=== PATIENT | male | born 1925 | race Caucasian/White ===

== ENCOUNTER 2016-10-29 19:41 | Inpatient (IN) | payer OTHER ==
[2016-10-29] MEDS ORDERED: HEPARIN NA (PORCINE) 5,000 UNITS/ML 1ML VIAL IVPUSH PRN ×4 (19:54→23:54)
[2016-10-29] MEDS ORDERED: HEPARIN INFUSION - 500 ML IVPB SCH (20:00)
[2016-10-29] MEDS ORDERED: SODIUM CHLORIDE 0.9% 500 ML INFUS.BAG IV ONE (20:02)
--- NOTE | 2016-10-29 20:05 | PDOC ---
History of Present Illness - General History Source: Patient, Old Records Exam Limitations: No Limitations - History of Present Illness Initial Comments: 10/29/16 20:44 The patient is a 89 year old male brought via EMS and presenting with his family , with a significant past medical history of AFIB, who presents to the emergency department with numbness in his lower extremities bilaterally. He notes that the numbness began 30 minutes prior to presentation. He reports that his last meal was at 5pm today, consisting of a hamburger. He denies any kind of fall or trauma. The patient denies chest pain, shortness of breath, headache and dizziness. Denies fever, chills, nausea, vomit, diarrhea and constipation. Denies dysuria, frequency, urgency and hematuria. Allergies: None Past surgical history: None reported Social history: No alcohol, tobacco or drug use reported PMD - Dr. Que Breaux <Jadiel Cordoba - Last Filed: 10/29/16 20:56> <Ann Soto - Last Filed: 10/29/16 21:28> - General Chief Complaint: CVA/TIA Stated Complaint: LEG NUMBNESS Time Seen by Provider: 10/29/16 19:48 Past History <Jadiel Cordoba - Last Filed: 10/29/16 20:56> - Psycho/Social/Smoking Cessation Hx Suicidal Ideation: No Smoking History: Never smoked Have you smoked in the past 12 months: No Information on smoking cessation initiated: No Hx Alcohol Use: No Drug/Substance Use Hx: No <Ann Soto - Last Filed: 10/29/16 21:28> - Past Medical History Allergies/Adverse Reactions: Allergies Allergy/AdvReac Type Severity Reaction Status Date / Time No Known Allergies Allergy Verified 10/29/16 19:49 Home Medications: Ambulatory Orders Aspirin [ASA -] 81 mg PO DAILY 10/29/16 Finasteride [Proscar -] 5 mg PO DAILY 10/29/16 Furosemide 20 mg PO DAILY 10/29/16 Lisinopril 5 mg PO DAILY 10/29/16 Metoprolol Tartrate 50 mg PO DAILY 10/29/16 Montelukast Na 10 mg PO DAILY 10/29/16 Tamsulosin HCl 0.4 mg PO DAILY 10/29/16 Review of Systems - Review of Systems Able to Perform ROS?: Yes Comments:: 10/29/16 20:46 GENERAL/CONSTITUTIONAL: No fever or chills. No weakness. HEAD, EYES, EARS, NOSE AND THROAT: No change in vision. No ear pain or discharge. No sore throat. CARDIOVASCULAR: No chest pain or shortness of breath RESPIRATORY: No cough, wheezing, or hemoptysis. GASTROINTESTINAL: No nausea, vomiting, diarrhea or constipation. GENITOURINARY: No dysuria, frequency, or change in urination. MUSCULOSKELETAL: No joint or muscle swelling or pain. No neck or back pain. SKIN: No rash NEUROLOGIC: (+) Bilateral lower extremity numbness. No headache, vertigo, loss of consciousness ENDOCRINE: No increased thirst. No abnormal weight change HEMATOLOGIC/LYMPHATIC: No anemia, easy bleeding, or history of blood clots. ALLERGIC/IMMUNOLOGIC: No hives or skin allergy. <Jadiel Cordoba - Last Filed: 10/29/16 20:56> *Physical Exam - Vital Signs Last Vital Signs Temp Pulse Resp BP Pulse Ox 98.1 F 53 L 18 158/65 96 10/29/16 19:52 10/29/16 19:52 10/29/16 19:52 10/29/16 19:52 10/29/16 19:52 - Physical Exam Comments: 10/29/16 20:47 GENERAL: Awake, alert, and fully oriented, in no acute distress HEAD: No signs of trauma, normocephalic, atraumatic EYES: PERRLA, EOMI, sclera anicteric, conjunctiva clear ENT: Auricles normal inspection, hearing grossly normal, nares patent, oropharynx clear without exudates. Moist mucosa NECK: Normal ROM, supple, no lymphadenopathy, JVD, or masses LUNGS: No distress, speaks full sentences, clear to auscultation bilaterally HEART:(+) Irregularly irregular heart, normal S1 and S2, no murmurs, rubs or gallops, peripheral pulses normal and equal bilaterally. ABDOMEN: Soft, nontender, normoactive bowel sounds. No guarding, no rebound. No masses EXTREMITIES: (+) No left DP or PT pulses. Right side palpable DP and PT pulses. No edema. No clubbing or cyanosis. NEUROLOGICAL: Cranial nerves II through XII grossly intact. Normal speech. SKIN: Warm, Dry, normal turgor, no rashes or lesions noted. <Jadiel Cordoba - Last Filed: 10/29/16 20:56> - Vital Signs Last Vital Signs Temp Pulse Resp BP Pulse Ox 98.1 F 53 L 18 158/65 96 10/29/16 19:52 10/29/16 19:52 10/29/16 19:52 10/29/16 19:52 10/29/16 19:52 <Ann Soto - Last Filed: 10/29/16 21:28> ED Treatment Course - LABORATORY CBC & Chemistry Diagram: 10/29/16 20:08 10/29/16 20:08 - ADDITIONAL ORDERS Additional order review: Laboratory Results 10/29/16 20:08 INR 1.12 10/29/16 20:08 RBC 4.23 MCV 97.0 H MCHC 32.8 RDW 14.3 MPV 9.0 Neutrophils % 58.6 Lymphocytes % 29.4 Monocytes % 9.0 Eosinophils % 2.1 Basophils % 0.9 - Medications Given in the ED: ED Medications Discontinued Medications Generic Name Dose Route Start Last Admin Trade Name Freq PRN Reason Stop Dose Admin Heparin Sodium (Porcine) 5,000 unit 10/29/16 20:10 10/29/16 20:22 Heparin - IVPUSH 10/29/16 20:11 5,000 unit ONCE ONE Administration Sodium Chloride 1,000 ml 10/29/16 20:02 10/29/16 20:22 Normal Saline - IV 10/29/16 20:03 1,000 ml ONCE ONE Administration <Jadiel Cordoba - Last Filed: 10/29/16 20:56> - LABORATORY CBC & Chemistry Diagram: 10/29/16 20:08 10/29/16 20:08 - RADIOLOGY Radiology Studies Ordered: Category Date Time Status HEAD CT WITHOUT CONTRAST [CT] Stat CT Scan 10/29/16 19:48 Ordered CHEST X-RAY PORTABLE* [RAD] Stat Radiology 10/29/16 19:49 Ordered LOWER EXT ART DOPP/PVR [VASC] Stat Vascular 10/29/16 19:52 Ordered <Ann Soto - Last Filed: 10/29/16 21:28> Medical Decision Making - Medical Decision Making 10/29/16 20:56 Dr. Jaime Diego was consulted regarding the patient at 7:55pm [phone] Dr. Que Breaux was consulted regarding the patient 8:00pm and again at 8:09pm [phone] Dr. Diego was at the bedside of the patient at 8:05pm <Jadiel Cordoba - Last Filed: 10/29/16 20:56> - Medical Decision Making 10/29/16 20:08 Pt has left leg numbness that he began to feel about 40 min ago. Popliteal pulse, DP and PT not present on left and leg is cold. [facility] surgeon paged immediately - he recommends to take patient to the ER in the AM, as pt at a burger. I paged Que Breaux, pt's PMD, and relayed this info, he agrees pt needs to go to OR immediately. 10/29/16 20:09 Pre op labs pending. [facility] surgeon at bedside. EKG shows afib and inraventricular conduction delay; Pt is not on blood thinners for the afib. Heparin IVP and drip running; NSS 1 L given I placed an admission to ICU, as there are no tele beds, and pt will likely not be placed on the medical floor with diagnosis of afib, on IV heparin drip 10/29/16 21:25 Pt went to OR. <Ann Soto - Last Filed: 10/29/16 21:28> *DC/Admit/Observation/Transfer - Attestations Scribe Attestion: 10/29/16 20:48 Documentation prepared by Jadiel Cordoba, acting as medical technical writer for Ann Soto MD <Jadiel Cordoba - Last Filed: 10/29/16 20:56> - Discharge Dispostion Admit: Yes <Ann Soto - Last Filed: 10/29/16 21:28> Diagnosis at time of Disposition: Atrial fibrillation, Left popliteal artery occlusion - Referrals Referrals: Que Breaux MD [Primary Care Provider] -
[2016-10-29] MEDS ORDERED: HEPARIN NA (PORCINE) 5,000 UNITS/ML 1ML VIAL IVPUSH ONE (20:10)
[2016-10-29 20:18] LABS: BASOPHIL 0.9 % (0-2.0); EOSINOPHIL 2.1 % (0-4.5); MCH 31.8 pg (25.7-33.7); MCHC 32.8 g/dl (32.0-35.9); NEUTROPHILS 58.6 % (42.8-82.8); PLATELET COUNT 141 K/MM3 (134-434); RDW 14.3 % (11.9-15.9); WHITE BLOOD COUNT 4.9 K/mm3 (4.0-10.0)
[2016-10-29] MEDS ORDERED: HEPARIN NA (PORCINE) 5,000 UNITS/ML 1ML VIAL ONE ×3 (20:18→22:24)
[2016-10-29] MEDS ORDERED: HEPARIN INFUSION - 500 ML IVPB ONE (20:24)
[2016-10-29 20:30] LABS: INR 1.12 (0.82-1.09); PROTHROMBIN TIME (PATIENT) 12.4 SEC (9.98-11.88)
[2016-10-29 20:44] LABS: ALBUMIN 3.1 g/dl (3.4-5.0); ANION GAP 9 (8-16); BILIRUBIN,TOTAL 0.7 mg/dL (0.2-1.0); CALCIUM 8.5 mg/dL (8.5-10.1); CO2 27 mmol/L (21-32); COCKROFT - GAULT 44.48; CREATININE 1.3 mg/dL (0.7-1.3); GLUCOSE,RANDOM 91 mg/dL (74-106); SGOT/AST 22 U/L (15-37); SGPT/ALT 22 U/L (12-78); TOT PROT 6.6 g/dl (6.4-8.2)
[2016-10-29 20:47] LABS: ALK PHOS 76 U/L (45-117); TROPONIN I < 0.02 ng/ml (0.00-0.05)
--- NOTE | 2016-10-29 21:30 | CONSULT ---
Consult - Alcohol/Substance Use Hx Alcohol Use: No - Smoking History Smoking history: Never smoked Have you smoked in the past 12 months: No Home Medications - Allergies Allergies/Adverse Reactions: Allergies Allergy/AdvReac Type Severity Reaction Status Date / Time No Known Allergies Allergy Verified 10/29/16 19:49 - Home Medications Home Medications: Ambulatory Orders Aspirin [ASA -] 81 mg PO DAILY 10/29/16 Finasteride [Proscar -] 5 mg PO DAILY 10/29/16 Furosemide 20 mg PO DAILY 10/29/16 Lisinopril 5 mg PO DAILY 10/29/16 Metoprolol Tartrate 50 mg PO DAILY 10/29/16 Montelukast Na 10 mg PO DAILY 10/29/16 Tamsulosin HCl 0.4 mg PO DAILY 10/29/16 Physical Exam Vital Signs: Vital Signs Temperature 98.1 F 10/29/16 21:12 Pulse Rate 69 10/29/16 21:12 Respiratory Rate 17 10/29/16 21:12 Blood Pressure 166/86 10/29/16 21:12 O2 Sat by Pulse Oximetry (%) 99 10/29/16 21:12 Labs: CBC, BMP 10/29/16 20:08 10/29/16 20:08 Assessment/Plan Vascular Surgery The patient is a 89 year old male brought via EMS and presenting with his family , with a significant past medical history of AFIB, who presents to the emergency department with numbness in his left lower extremity. He notes that the numbness began 30 minutes prior to presentation. He reports that his last meal was at 5pm today, consisting of a hamburger. He denies any kind of fall or trauma. The patient denies chest pain, shortness of breath, headache and dizziness. Denies fever, chills, nausea, vomit, diarrhea and constipation. Denies dysuria, frequency, urgency and hematuria. Allergies: None Past surgical history: None reported Social history: No alcohol, tobacco or drug use reported PMD - Dr. Que Breaux PE head - NC/AT Lung - CTA Heart - RRR abd - soft,nt,nd ext - Left lower ext cool to touch. Palpable DP pulse. No pop pulse. faint femoral pulse. Motor in left foot is intact Sensory is not intact. Right foot - warm, palpable pulses. A/P Left lower ext embolus. Will do angiogram possible open thrombectomy
[2016-10-29] MEDS ORDERED: SUCCINYLCHOLINE CHLORIDE 200 MG/10 ML VIAL ONE (21:32)
[2016-10-29] MEDS ORDERED: MIDAZOLAM HCL 2 MG/2 ML SINGLE DOSE VIAL ONE (21:32)
[2016-10-29] MEDS ORDERED: PROPOFOL 20 ML ONE (21:32)
[2016-10-29] MEDS ORDERED: LIDOCAINE HCL 1%, 10 MG/ML (20ML VIAL) ONE (21:45)
[2016-10-29] MEDS ORDERED: LIDOCAINE HCL 2% (20ML MULTI-DOSE VIAL) NR ONE (21:45)
[2016-10-29] MEDS ORDERED: ceFAZolin SODIUM 1 GM VIAL IVPB ONE (21:57)
[2016-10-29] MEDS ORDERED: ROCURONIUM BROMIDE 50 MG/5 ML VIAL ONE (21:58)
[2016-10-29] MEDS ORDERED: PHENYLEPHRINE HCL 10 MG/1 ML SINGLE DOSE VIAL ONE (22:34)
[2016-10-29] MEDS ORDERED: ePHEDrine SULFATE 50 MG/1 ML AMPULE ONE (22:48)
[2016-10-29] MEDS ORDERED: NEOSTIGMINE METHYLSULFATE 0.5 MG/ML - 10 ML MDV ONE (23:08)
[2016-10-29] MEDS ORDERED: HEPARIN NA (PORCINE) 5,000 UNITS/ML 1ML VIAL SQ ONE (23:40)
[2016-10-29] MEDS: HEPARIN - 25,000 UNIT in SODIUM CHLORIDE 495 ML IV SCH (23:45)
--- NOTE | 2016-10-29 23:57 | OP ---
Operative Note - Note: Operative Date: 10/29/16 Pre-Operative Diagnosis: Left lower ext ischemia Operation: Aortogram, LLE angiogram, left iliac artery and SFA open thrombecomy Findings: emolus in iliac and sfa Post-Operative Diagnosis: Same as Pre-op Surgeon: Jaime Diego Anesthesia: General Estimated Blood Loss (mls): 100 Operative Report Dictated: Yes
[2016-10-30] MEDS ORDERED: ONDANSETRON 4 MG/2 ML VIAL IVPUSH PRN (00:13)
--- NOTE | 2016-10-30 00:26 | CONSULT ---
Consult Consult Specialty:: PULMONARY / CRITICAL CARE Referred by:: Dr Breaux Reason for Consultation:: s/p LLE thrombectomy - History of Present Illness Chief Complaint: LE numbness History of Present Illness: Briefly, 89 y/o man with AF, HTN, BPH, presented to the ED with b/l LE parasthesia. In the ED he was found to have a cold LEFT leg with weak femoral and pedal pulses, no pop pulse. He went to the OR with Dr. Diego. He underwent a left aortogram, LLE angiogram, left iliac artery and SFA open thrombecomy for LEFT popliteal artery occlusion. He has positive distal pulses with a warm leg post-operatively. He was started on Heparin drip and admitted to the ICU for observation. - History Source History Provided By: Medical Record Limitations to Obtaining History: Other (lethargic post-anesthesia) - Past Medical History Cardio/Vascular: Yes: AFIB, HTN Pulmonary: Yes: COPD - Alcohol/Substance Use Hx Alcohol Use: No - Smoking History Smoking history: Never smoked Have you smoked in the past 12 months: No Home Medications - Allergies Allergies/Adverse Reactions: Allergies Allergy/AdvReac Type Severity Reaction Status Date / Time No Known Allergies Allergy Verified 10/29/16 19:49 - Home Medications Home Medications: Ambulatory Orders Aspirin [ASA -] 81 mg PO DAILY 10/29/16 Finasteride [Proscar -] 5 mg PO DAILY 10/29/16 Furosemide 20 mg PO DAILY 10/29/16 Lisinopril 5 mg PO DAILY 10/29/16 Metoprolol Tartrate 50 mg PO DAILY 10/29/16 Montelukast Na 10 mg PO DAILY 10/29/16 Tamsulosin HCl 0.4 mg PO DAILY 10/29/16 Review of Systems Unable to obtain ROS, reason: pt is sedated Physical Exam Vital Signs: Vital Signs Temperature 98.1 F 10/29/16 21:12 Pulse Rate 69 10/29/16 21:12 Respiratory Rate 17 10/29/16 21:12 Blood Pressure 166/86 10/29/16 21:12 O2 Sat by Pulse Oximetry (%) 99 10/29/16 21:12 Constitutional: Yes: Well Nourished Eyes: Yes: WNL HENT: Yes: Atraumatic, Normocephalic Neck: Yes: WNL Cardiovascular: Yes: Pulse Irregular. No: JVD Respiratory: Yes: CTA Bilaterally Gastrointestinal: Yes: Normal Bowel Sounds, Soft. No: Tenderness Extremities: Yes: WNL Edema: No Peripheral Pulses WNL: Yes (+ pedal pulses, L foot warm, good cap refill) Integumentary: Yes: WNL Imaging - Results Chest X-ray: Report Reviewed Ultrasound: Report Reviewed Problem List - Problems (1) Atrial fibrillation Code(s): I48.91 - UNSPECIFIED ATRIAL FIBRILLATION (2) Left popliteal artery occlusion Code(s): I74.3 - EMBOLISM AND THROMBOSIS OF ARTERIES OF THE LOWER EXTREMITIES (3) Hypertension Code(s): I10 - ESSENTIAL (PRIMARY) HYPERTENSION (4) BPH (benign prostatic hyperplasia) Code(s): N40.0 - BENIGN PROSTATIC HYPERPLASIA WITHOUT LOWER URINRY TRACT SYMP Assessment/Plan Left popliteal artery occlusion s/p left iliac artery and SFA open thrombecomy AF HTN BPH -Vascular following -Heparin for full AC -Frequent neurovascular checks -Rate control -Restart home meds as indicated -Advance diet -GI PPx while on AC Monitor in ICU Thank you for this interesting consult Keon Martinez Pulm/Critical Care PRESSURE CONTR[employer]ER
[2016-10-30] MEDS: LACTATED RINGERS SOLUTION 1,000 ML IV SCH ×2 (00:40→16:33)
[2016-10-30 00:56] VITALS: BMI 26.5
--- NOTE | 2016-10-30 01:07 | OP ---
DATE OF OPERATION: 10/29/2016 PREOPERATIVE DIAGNOSIS: Left lower extremity ischemia. POSTOPERATIVE DIAGNOSIS: Left lower extremity ischemia. PROCEDURE: Aortogram, left lower extremity angiogram, open thrombectomy, left iliac artery and left superficial femoral artery. SURGEON: Jaime Devries MD ANESTHESIA: Fractional. BLOOD LOSS: 100 mL. INDICATIONS: The patient is an 89-year-old male who comes in today to the ER complaining of numbness in his left lower extremity. He claims that the numbness probably started somewhere around 5 p.m. He decided to come to the ER. Upon coming to the ER, we recognized that he has a left lower extremity that is cool to touch with diminished pulses. He has palpable pulses on the opposite extremity. It was felt that he would need an angiogram and need a possible open thrombectomy. Patient was consented for the procedure, understanding all risks, benefits, and alternatives. DESCRIPTION OF PROCEDURE: He was then taken to the operating room suite and placed on the operating table in the supine position. The area of the right and left groins and the abdomen were prepped and draped in the sterile surgical manner. We then injected 10 mL of lidocaine. Anesthesia administered general anesthesia. We then went ahead and took a micropuncture needle and punctured the right common femoral artery. Micropuncture wire was inserted and a traditional 5-Marshallese sheath was inserted. A 0.035 floppy guidewire was inserted into the aorta followed by an RIM catheter. We then shot an aortogram, showing that the aorta and iliac arteries were without any disease; however, the left iliac residential down had clot and there was minimal blood flow getting into the vein and the common femoral artery. At this point, we decided that the patient would need an open operation. We went ahead and made a 7-cm incision over the left common femoral artery. Bovie cautery was used to control hemostasis. We were able to dissect down using Bovie electrocautery, down through all of the subcutaneous tissue. We then got down to the femoral sheath. The femoral sheath was then opened and the common femoral artery, the SFA, and the profunda were all isolated, dissected, and loops were placed around them for control. We then administered 5000 units of IV heparin. After 3 minutes, we got proximal and distal control on each artery. We then went ahead and, using an 11-blade, made a transverse incision on the common femoral artery. We then went ahead and used a No. 4 Jacob and placed a Jacob up into the iliac arteries. When we did that, clot embolus was removed from the iliac artery. Multiple passes were taken until there was no more clot found. We then went ahead and tested the inflow and the inflow was perfectly open. We then went ahead and placed our Jacob catheter into the deep profunda artery and brought it back and there was no clot found there. We then put our 4-0 Jacob catheter down to the popliteal artery and we were able to do an embolectomy of the SFA. Clot was removed and that was sent to pathology. There was good back-bleeding from the SFA. We then went ahead and placed a 5-Marshallese sheath into the SFA and shot an angiogram of the left lower extremity. There was good flow down into the foot. Main run off for the patient is his left posterior tibial artery. At this point, we then used 6-0 Prolene double-arm and ran a stitch and closed our arteriotomy in a running fashion. Wound was well irrigated. Surgicel was placed. We then went ahead and used 3-0 Vicryl in the subcutaneous tissues, which were approximated in an interrupted manner. The skin was closed with skin shanna. We then went ahead and placed a StarClose device in the right common femoral artery and the artery was successfully closed using the StarClose device. Pressure was held was held. The areas were then dried and Dermabond was placed. Then 4 x 4's and Tegaderm was placed. The patient tolerated the procedure with no complication. Patient had palpable pulses at the end of the case and will be started on IV heparin. JIAME DEVRIES DO [id number]
[2016-10-30 06:12] LABS: BASOPHIL 0.4 % (0-2.0); EOSINOPHIL 0.8 % (0-4.5); MCH 32.2 pg (25.7-33.7); MEAN CELL VOLUME 97.6 fl (80-96); MEAN PLT VOLUME 9.4 fl (7.5-11.1); NEUTROPHILS 67.4 % (42.8-82.8); PLATELET COUNT 134 K/MM3 (134-434); RDW 14.5 % (11.9-15.9)
[2016-10-30] MEDS ORDERED: TAMSULOSIN HCL 0.4 MG CAP.ER.24H (FP) PO SCH (08:30)
[2016-10-30 08:34] LABS: CALCIUM 8.1 mg/dL (8.5-10.1); COCKROFT - GAULT 59.33; MAGNESIUM 2.4 mg/dL (1.8-2.4); PHOSPHOROUS 3.3 mg/dL (2.5-4.9)
--- NOTE | 2016-10-30 09:08 | PN ---
Progress Note (short form) - Note Progress Note: Vascular Surgery Pt seen and examined. POD #1 left lower ext open thrombectomy. Palpable PT pulse, popliteal pulse. Dopplerable DP and PT pulses. some hematoma in left groin, soft. Cont IV heparin for afib. Will follow. Jaime Diego DO
--- NOTE | 2016-10-30 09:35 | PN ---
Progress Note (short form) - Note Progress Note: Post op day#1.S/p Open thrombectomy under Ga uneventful.P 68.BP144/103 and Spop2 98% on O2 @L NC.Patient stable.No any anesthesia related problem.Patient DC from the anesthesia care.
--- NOTE | 2016-10-30 09:36 | HP ---
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: Yes: Other (slightley forgetful) Cardiovascular: Yes: AFIB, HTN, Other (h/o chf?) Pulmonary: Yes: COPD - Smoking History Smoking history: Never smoked Have you smoked in the past 12 months: No - Alcohol/Substance Use Hx Alcohol Use: No (dinner time, wine) History of Substance Use: reports: None - Social History Usual Living Arrangement: Yes: With Child ADL: Independent History of Recent Travel: No Home Medications - Allergies Allergies/Adverse Reactions: Allergies Allergy/AdvReac Type Severity Reaction Status Date / Time No Known Allergies Allergy Verified 10/29/16 19:49 - Home Medications Home Medications: Ambulatory Orders Aspirin [ASA -] 81 mg PO DAILY 10/29/16 Finasteride [Proscar -] 5 mg PO DAILY 10/29/16 Furosemide 20 mg PO DAILY 10/29/16 Lisinopril 5 mg PO DAILY 10/29/16 Metoprolol Tartrate 50 mg PO DAILY 10/29/16 Montelukast Na 10 mg PO DAILY 10/29/16 Tamsulosin HCl 0.4 mg PO DAILY 10/29/16 Family Disease History - Family Disease History Family History: Unremarkable Review of Systems - Review of Systems Constitutional: reports: No Symptoms Eyes: reports: No Symptoms HENT: reports: No Symptoms Neck: reports: No Symptoms Cardiovascular: reports: No Symptoms Respiratory: reports: No Symptoms Gastrointestinal: reports: No Symptoms Genitourinary: reports: No Symptoms Breasts: reports: No Symptoms Reported Musculoskeletal: reports: No Symptoms, Other (lt leg better) Integumentary: reports: No Symptoms Neurological: reports: No Symptoms Endocrine: reports: No Symptoms Hematology/Lymphatic: reports: No Symptoms Psychiatric: reports: No Symptoms Physical Examination Vital Signs: Vital Signs Temperature 97 F L 10/30/16 06:00 Pulse Rate 68 10/30/16 08:00 Respiratory Rate 18 10/30/16 08:00 Blood Pressure 123/63 10/30/16 08:00 O2 Sat by Pulse Oximetry (%) 97 06/12/17 07:50 Constitutional: Yes: Well Nourished Eyes: Yes: WNL HENT: Yes: WNL Neck: Yes: WNL Cardiovascular: Yes: Pulse Irregular Respiratory: Yes: WNL Gastrointestinal: Yes: WNL ...Rectal Exam: Yes: Deferred Renal/: Yes: WNL Breast(s): Yes: WNL Musculoskeletal: Yes: Other (lt leg w pules warmer) Extremities: Yes: Other (lt leg warmer) Edema: No Peripheral Pulses WNL: Yes (lt leg better) Neurological: Yes: WNL, Alert, Oriented ...Motor Strength: WNL Psychiatric: Yes: WNL Labs: CBC, BMP 10/30/16 05:10 10/30/16 05:10 Assessment/Plan watch increasing chf no lasix yet ppi cont as is laxitive dvt precautions card consult
[2016-10-30] MEDS ORDERED: METOPROLOL SUCCINATE 50 MG TAB.SR.24H (FP) PO SCH (10:00)
[2016-10-30] MEDS ORDERED: PANTOPRAZOLE 40 MG TABLET (FP) PO SCH (10:00)
[2016-10-30] MEDS ORDERED: LISINOPRIL 5 MG TABLET (FP) PO SCH (10:00)
[2016-10-30] MEDS: TAMSULOSIN HCL 0.4 MG CAP.ER.24H (FP) PO SCH ×2 (10:20→16:37)
[2016-10-30] MEDS: LISINOPRIL 5 MG TABLET (FP) PO SCH (10:21)
[2016-10-30] MEDS: METOPROLOL SUCCINATE 50 MG TAB.SR.24H (FP) PO SCH (10:21)
--- NOTE | 2016-10-30 11:19 | PN ---
Physical Exam: SUBJECTIVE: Patient seen and examined. denies chest pain, fever, leg pain, shortness of breath. Feels well. OBJECTIVE: Vital Signs Period Temp Pulse Resp BP Sys/Dean Pulse Ox Last 24 Hr 97 F-97.4 F 52-76 15-23 100-148/48-86 96-99 GENERAL: The patient is awake, alert, and fully oriented, in no acute distress. HEAD: Normal with no signs of trauma. EYES: PERRL, extraocular movements intact, sclera anicteric, conjunctiva clear. ENT: oropharynx clear without exudates, moist mucous membranes. NECK: Trachea midline, full range of motion, supple. LUNGS: Breath sounds equal, clear to auscultation bilaterally, no wheezes, no crackles, no accessory muscle use. HEART: afib, S1, S2 without murmur ABDOMEN: Soft, nontender, nondistended, normoactive bowel sounds, no guarding, no rebound, well-healed appendectomy scar RLQ EXTREMITIES: Upper: 2+ radial pulses, warm, well-perfused, no edema. Lower: Left: doppler pulse at DP, palpable medial ankle/popliteal/femoral. ecchymosis medial left groin, shanna intact, no discharge at incision line. sensation intact throughout leg, motor intact at toes, ankles and knee flexion/extension. Right: 1+ pulse DP, motor and sensation intact throughout at hip/knee/ankle and toes NEUROLOGICAL: Cranial nerves II through XII grossly intact. Normal speech. Laboratory Results - last 24 hr 10/30/16 10/30/16 10/30/16 05:10 05:10 05:10 WBC 9.0 D RBC 3.64 L Hgb 11.7 D Hct 35.5 MCV 97.6 H MCHC 33.0 RDW 14.5 Plt Count 134 MPV 9.4 Neutrophils % 67.4 Lymphocytes % 21.7 D Monocytes % 9.7 Eosinophils % 0.8 Basophils % 0.4 PTT (Actin FS) 136.3 H D Sodium 147 H Potassium 4.2 Chloride 112 H Carbon Dioxide 26 Anion Gap 9 BUN 24 H Creatinine 1.0 D Random Glucose 112 H D Calcium 8.1 L Phosphorus 3.3 Magnesium 2.4 Active Medications Generic Name Dose Route Start Last Admin Trade Name Freq PRN Reason Stop Dose Admin Heparin Sodium (Porcine) 1,000 unit 10/29/16 23:54 Heparin - IVPUSH PRN PRN Heparin Heparin Sodium (Porcine) 5,000 unit 10/29/16 23:54 Heparin - IVPUSH PRN PRN Heparin Heparin Sodium (Porcine) 25, 500 mls @ 20 mls/hr 10/29/16 23:45 10/30/16 08:39 000 unit/ Sodium Chloride IV 850 unit/hr TITR JASON Titration Protocol 1,000 UNIT/HR Lactated Ringer's 1,000 mls @ 75 mls/hr 10/30/16 00:15 10/30/16 00:40 Lactated Ringers Solution IV 75 mls/hr ASDIR JASON Administration Lisinopril 5 mg 10/30/16 10:00 10/30/16 10:21 Prinivil PO 5 mg DAILY JASON Administration Metoprolol Succinate 50 mg 10/30/16 10:00 10/30/16 10:21 Toprol Xl - PO 50 mg DAILY JASON Administration Pantoprazole Sodium 40 mg 10/30/16 10:00 10/30/16 10:21 Protonix - PO 40 mg DAILY JASON Administration Tamsulosin HCl 0.4 mg 10/30/16 08:30 10/30/16 10:20 Flomax - PO 0.4 mg DAILY@0830 JASON Administration ASSESSMENT/PLAN: 89 yr old man with afib(not on home AC), HTN, HLD presents with cold immobile left leg 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 - emboli likely caused by afib Cardiovascular POD# 1 Thrombectomy monitor pulses heparin drip (was held earlier this morning due to supratherapeutic INR and hematoma in left groin below shanna) -- restarted with close monitoring continuous bedrest today Afib - permanent, rate controlled heparin drip Toprol XL 50mg po daily HTN Privinil 5mg po daily Consult: Dr. Hull to discuss anti-coagulation Hold asa while on heparin drip Renal/urology Hypernatremia with elevated BUN - in setting of low po intake, encourage oral hydration and LR @ 75ml/hr pt straight catherizes at home intermittently, will monitor for urinary retention flomax daily GI zantac 150mg po BID for prophylaxis Diet: low sodium DVT: heparin drip Visit type - Emergency Visit Emergency Visit: No - New Patient This patient is new to me today: Yes Date on this admission: 10/30/16 - Critical Care Critical Care patient: Yes Total Critical Care Time (in minutes): 36 Critical Care Statement: The care of this patient involved high complexity decision making to prevent further life threatening deterioration of the patient 's condition and/or to evalute & treat vital organ system(s) failure or risk of failure.
--- NOTE | 2016-10-30 13:16 | CON.CARD ---
Cardiology Consult (text) - Consultation Consultation Note: CC: afib with embolus 89 y/o man with h/o AF (?AC), HTN, BPH, copd, presented to the ED with acute b/ l LE parasthesia and found to have LLE embolus now s/p thrombectomy 10/29. Acute onset of LLE discomfort, now improving. Believes he was previously on coumadin, a few years ago, but cannot recall history. Does not recall having a history of bleeding, falls or anemia. Does not recall being on a NOAC. States he manages his own medications and although he can't remember the names of his meds, states he does not have trouble dispensing medications from his bottles at home. no palps, dizziness, orthopnea, le edema, cp, sob, bleeding. pmhx/pshx: per phi fam hx: no premature cad social hx: never smoked ros: per hpi. no f/c/s, n/v/d, rashes, h/a , cough, congestion Ambulatory Orders Aspirin [ASA -] 81 mg PO DAILY 10/29/16 Finasteride [Proscar -] 5 mg PO DAILY 10/29/16 Furosemide 20 mg PO DAILY 10/29/16 Lisinopril 5 mg PO DAILY 10/29/16 Metoprolol Tartrate 50 mg PO DAILY 10/29/16 Montelukast Na 10 mg PO DAILY 10/29/16 Tamsulosin HCl 0.4 mg PO DAILY 10/29/16 Current Medications Heparin Sodium (Porcine) (Heparin -) 1,000 unit IVPUSH PRN PRN PRN Reason: Heparin Heparin Sodium (Porcine) (Heparin -) 5,000 unit IVPUSH PRN PRN PRN Reason: Heparin Heparin Sodium (Porcine) 25, (000 unit/ Sodium Chloride) 500 mls @ 20 mls/hr IV TITR JASON; 1,000 UNIT/HR PRN Reason: Protocol Last Titration: 10/30/16 08:39 Dose: 850 unit/hr Lactated Ringer's (Lactated Ringers Solution) 1,000 mls @ 75 mls/hr IV ASDIR JASON Last Admin: 10/30/16 00:40 Dose: 75 mls/hr Lisinopril (Prinivil) 5 mg PO DAILY [facility] Last Admin: 10/30/16 10:21 Dose: 5 mg Metoprolol Succinate (Toprol Xl -) 50 mg PO DAILY [facility] Last Admin: 10/30/16 10:21 Dose: 50 mg Pantoprazole Sodium (Protonix -) 40 mg PO DAILY [facility] Last Admin: 10/30/16 10:21 Dose: 40 mg Tamsulosin HCl (Flomax -) 0.4 mg PO DAILY@0830 [facility] Last Admin: 10/30/16 10:20 Dose: 0.4 mg Vital Signs - 24 hr 10/29/16 10/29/16 10/30/16 19:52 21:12 00:33 Temperature 98.1 F 98.1 F 97.4 F L Pulse Rate 53 L 59 L Pulse Rate [ 69 Radial] Respiratory 18 17 16 Rate Blood Pressure 158/65 128/63 Blood Pressure 166/86 [Right Arm] O2 Sat by Pulse 96 99 99 Oximetry (%) 10/30/16 10/30/16 10/30/16 00:45 00:47 00:56 Temperature 97 F L Pulse Rate 57 L 57 L Pulse Rate [ Radial] Respiratory 21 17 Rate Blood Pressure 100/51 100/51 Blood Pressure [Right Arm] O2 Sat by Pulse 99 98 Oximetry (%) 10/30/16 10/30/16 10/30/16 01:00 01:15 01:30 Temperature Pulse Rate 60 58 L 58 L Pulse Rate [ Radial] Respiratory 23 15 15 Rate Blood Pressure 102/58 100/61 107/53 Blood Pressure [Right Arm] O2 Sat by Pulse 99 99 99 Oximetry (%) 10/30/16 10/30/16 10/30/16 01:45 02:00 04:00 Temperature 97.4 F L Pulse Rate 52 L 52 L 55 L Pulse Rate [ Radial] Respiratory 18 16 16 Rate Blood Pressure 106/48 129/67 145/86 Blood Pressure [Right Arm] O2 Sat by Pulse 99 Oximetry (%) 10/30/16 10/30/16 10/30/16 06:00 07:50 08:00 Temperature 97 F L Pulse Rate 69 68 Pulse Rate [ Radial] Respiratory 15 18 Rate Blood Pressure 148/75 123/63 Blood Pressure [Right Arm] O2 Sat by Pulse 97 Oximetry (%) 10/30/16 10/30/16 10/30/16 10:00 10:14 12:00 Temperature 98.5 F Pulse Rate 68 76 64 Pulse Rate [ Radial] Respiratory 18 20 Rate Blood Pressure 126/64 117/70 Blood Pressure [Right Arm] O2 Sat by Pulse 96 Oximetry (%) Intake & Output 10/28/16 10/29/16 10/30/16 10/31/16 07:59 07:59 07:59 07:59 Intake Total 1870 Output Total 3 Balance 186 Weight 184 lb 11 oz nad, calm jvd flat, neck supple ctab, nl effort irregularly irregular. nl s1, s2 2/6 murmur at apex + displaced pmi + bs soft nt nd no hepatosplenomegaly ext without edema. clubbing trace mottling of LLE, diminished pulses, warm aaox3 no carotid bruits no jaundice, diaphoresis. CBC, BMP 10/30/16 05:10 10/30/16 05:10 Laboratory Tests 10/29/16 10/30/16 20:08 05:10 Magnesium 2.4 ALT 22 Alkaline Phosphatase 76 Creatine Kinase 90 Troponin I < 0.02 Total Protein 6.6 ekg: afib with pvc's/aberrantly conducted complexes. LAD. RBBB. LAFB. ? anterior q waves tele: afib, pvc's. occ nsvt. cxr: no active pulmonary disease 89 y/o man with h/o AF (?AC), HTN, BPH, copd, presented to the ED with acute b/ l LE parasthesia and found to have LLE embolus now s/p thrombectomy 10/29. afib - now with LLE embolus s/p thrombectomy. - On heparin drip. Does not appear to have been on AC previously. Will need to clarify with his pmd regarding whether he has contraindications. - Ab ekg/displaced pmi, will need echo to evaluate for structural abnormalities. - rate controlled on metoprolol - ongoing management of electrolytes. occ NSVT - echo to evaluate for structural abnormalities. - Currently with intermittent bradycardia, will await echo results before uptitrating BB regimen. LLE embolus - likely cardiac source - now s/p Aortogram, LLE angiogram, left iliac artery and SFA open thrombecomy. vascular surgery following. HTN - well controlled on home regimen, con't BB, FATUMA, flomax hypernatremia - on IVF repletion.
--- NOTE | 2016-10-30 14:06 | EKG ---
Test Reason : Blood Pressure : / mmHG Vent. Rate : 067 BPM Atrial Rate : 055 BPM P-R Int : 000 ms QRS Dur : 150 ms QT Int : 460 ms P-R-T Axes : 000 -74 007 degrees QTc Int : 486 ms ATRIAL FIBRILLATION WITH PREMATURE VENTRICULAR OR ABERRANTLY CONDUCTED COMPLEXES RIGHT BUNDLE BRANCH BLOCK LEFT ANTERIOR FASCICULAR BLOCK BIFASCICULAR BLOCK ABNORMAL ECG NO PREVIOUS ECGS AVAILABLE Confirmed by JASMINA CRAVEN, JUSTIN ([id number]) on 10/30/2016 2:06:27 PM Referred By: Confirmed By:JUSTIN FREEDMAN MD
[2016-10-30] MEDS ORDERED: ACETAMINOPHEN 325 MG TABLET (FP) PO PRN (16:40)
[2016-10-30] MEDS: RANITIDINE HCL 150 MG TABLET (FP) PO SCH (21:54)
[2016-10-31] MEDS: HEPARIN - 25,000 UNIT in SODIUM CHLORIDE 495 ML IV SCH ×2 (03:17→07:25)
[2016-10-31] MEDS: LACTATED RINGERS SOLUTION 1,000 ML IV SCH (03:18)
[2016-10-31 06:27] LABS: MCH 32.4 pg (25.7-33.7); MCHC 33.4 g/dl (32.0-35.9); MEAN PLT VOLUME 9.9 fl (7.5-11.1); PLATELET COUNT 108 K/MM3 (134-434); RDW 14.4 % (11.9-15.9); WHITE BLOOD COUNT 6.3 K/mm3 (4.0-10.0)
[2016-10-31] MEDS ORDERED: PT OWN MED DRAWER 7, Y5N ONE (07:22)
--- NOTE | 2016-10-31 07:34 | PN ---
Progress Note (short form) - Note Progress Note: POD #2 Alert. Resting comfortably without complaint. States his left foot feels much better since having surgical procedure. Currently on hep gtt for his afib. Denies bilat lower extremity rest pain, numbness/tingling sensation, CP or SOB. Last Vital Signs Temp Pulse Resp BP Pulse Ox 99.3 F 65 19 135/65 96 10/31/16 06:00 10/31/16 06:00 10/31/16 06:00 10/31/16 06:00 10/30/16 21:00 INR, PTT INR 1.12 (0.82-1.09) 10/29/16 20:08 PE Gen: alert. nad. LE: Palpable RLE DP pulse, Dopplerable LLE DP pulse. Popliteal pulse palpable bilat. PT pulses dopplerable bilat. Feet are warm to touch. No pain with movement. Cap refill < 3 sec Groin: + hematoma in left groin, soft. Problem List - Problems (1) Left popliteal artery occlusion Assessment/Plan: POD #1 s/p Aortogram, LLE angiogram, left iliac artery and SFA open thrombecomy Cont hep gtt f/u INR Warm compress to left groin hematoma Out of bed to chair Downgrade to floor at ICU discretion Code(s): I74.3 - EMBOLISM AND THROMBOSIS OF ARTERIES OF THE LOWER EXTREMITIES (2) Atrial fibrillation Code(s): I48.91 - UNSPECIFIED ATRIAL FIBRILLATION
--- NOTE | 2016-10-31 07:43 | PN ---
Physical Exam: SUBJECTIVE: Patient seen and examined. c/o intermittent nonproductive cough denies chest pain, palpitations, pain the left leg, fevers, N/V, dysuria. occasional urinary hesitancy. OBJECTIVE: Vital Signs Period Temp Pulse Resp BP Sys/Dean Pulse Ox Last 24 Hr 98.5 F-99.3 F 60-78 12-21 108-135/51-84 96-98 GENERAL: The patient is awake, alert, and fully oriented, in no acute distress. EYES: PERRL, extraocular movements intact, sclera anicteric, conjunctiva clear. ENT: oropharynx clear without exudates, distal palate with petechai, moist mucous membranes. NECK: Trachea midline, full range of motion, supple. LUNGS: Breath sounds equal, clear to auscultation bilaterally, no wheezes, no crackles, no accessory muscle use. HEART: afib, S1, S2 without murmur ABDOMEN: Soft, nontender, nondistended, normoactive bowel sounds, no guarding, no rebound, well-healed appendectomy scar RLQ EXTREMITIES: Upper: 2+ radial pulses, warm, well-perfused, no edema. Lower: Left: palpable 1+ DP, palpable medial ankle/popliteal/femoral. ecchymosis medial left groin- improved, shanna intact, no discharge at incision line. sensation intact throughout leg, motor intact at toes, ankles and knee flexion/ extension, hip extension limited due to pain. Right: 1+ pulse DP, motor and sensation intact throughout at hip/knee/ankle and toes. right groin with bleeding at incision site of aortogram Laboratory Results - last 24 hr 10/30/16 10/30/16 10/30/16 05:10 05:10 15:50 WBC RBC Hgb Hct MCV MCHC RDW Plt Count MPV PTT (Actin FS) 136.3 H D 60.4 H D Sodium 147 H Potassium 4.2 Chloride 112 H Carbon Dioxide 26 Anion Gap 9 BUN 24 H Creatinine 1.0 D Random Glucose 112 H D Calcium 8.1 L Phosphorus 3.3 Magnesium 2.4 10/31/16 10/31/16 05:30 05:30 WBC 6.3 RBC 3.15 L Hgb 10.2 L D Hct 30.6 L MCV 97.0 H MCHC 33.4 RDW 14.4 Plt Count 108 L MPV 9.9 PTT (Actin FS) 58.9 H Sodium Potassium Chloride Carbon Dioxide Anion Gap BUN Creatinine Random Glucose Calcium Phosphorus Magnesium Active Medications Generic Name Dose Route Start Last Admin Trade Name Blaire PRN Reason Stop Dose Admin Acetaminophen 650 mg 10/30/16 16:40 10/30/16 17:02 Tylenol - PO 650 mg Q4H PRN Administration FEVER OR PAIN Heparin Sodium (Porcine) 1,000 unit 10/29/16 23:54 Heparin - IVPUSH PRN PRN Heparin Heparin Sodium (Porcine) 5,000 unit 10/29/16 23:54 Heparin - IVPUSH PRN PRN Heparin Heparin Sodium (Porcine) 25, 500 mls @ 20 mls/hr 10/29/16 23:45 10/31/16 07:25 000 unit/ Sodium Chloride IV 17 mls/hr TITR JASON Administration Protocol 1,000 UNIT/HR Lactated Ringer's 1,000 mls @ 75 mls/hr 10/30/16 00:15 10/31/16 03:18 Lactated Ringers Solution IV 75 mls/hr ASDIR JASON Administration Lisinopril 5 mg 10/30/16 10:00 10/30/16 10:21 Prinivil PO 5 mg DAILY JASON Administration Metoprolol Succinate 50 mg 10/30/16 10:00 10/30/16 10:21 Toprol Xl - PO 50 mg DAILY JASON Administration Ranitidine HCl 150 mg 10/30/16 22:00 10/30/16 21:54 Zantac - PO 150 mg BID JASON Administration Tamsulosin HCl 0.4 mg 10/30/16 08:30 10/30/16 16:37 Flomax - PO Not Given DAILY@0830 [facility] ASSESSMENT/PLAN: 89 yr old man with afib(not on home AC), HTN, HLD presents with cold immobile left leg 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 - pt with bleeding at venopuncture site and right groin puncture site, pressure dressing applied, since PTT is thereupatic, will monitor closely for resolution. Cardiovascular POD# 2 Thrombectomy monitor pulses heparin drip - plan to bridge with oral anti-coagulation OOB Afib - permanent, rate controlled heparin drip Toprol XL 50mg po daily HTN Privinil 5mg po daily Consult: Dr. Hull to discuss anti-coagulation Hold asa while on heparin drip consult: Dr. Diego(vascular) intermittent PVC's on monitor, electrolytes within normal, pt denies chest pain/ palpitations(asymptomatic), EKG with bifasicular block, monitor for now. Renal/urology Hypernatremia with elevated BUN, improved, encourage oral hydration, dc'd IVF GI zantac 150mg po BID for prophylaxis Respiratory incentive spiramotery [facility] [place] physical therapy evaluation, tolerated OOB well Hematological decreased platelets count from yesterday, repeat in the morning with differential decreased h/h from yesterday, mild bleeding from venopuncture today, trend h/h, minor bleeding from venopuncture site, unlikely to be cause of acute anemia. no other sites of overt bleeding or hematoma formation. Urology straight cath prn pt straight catherizes at home intermittently, will monitor for urinary retention flomax daily Diet: low sodium DVT: heparin drip, plan to bridge, to be discussed with cardiology Dispo: condition improved, patient can be monitored on Tele floor, will likely require rehab for gait training and stability Visit type - Emergency Visit Emergency Visit: No - New Patient This patient is new to me today: No - Critical Care Critical Care patient: Yes Total Critical Care Time (in minutes): 36 Critical Care Statement: The care of this patient involved high complexity decision making to prevent further life threatening deterioration of the patient 's condition and/or to evalute & treat vital organ system(s) failure or risk of failure.
[2016-10-31 07:58] LABS: CALCIUM 8.1 mg/dL (8.5-10.1); CREATININE 0.8 mg/dL (0.7-1.3)
--- NOTE | 2016-10-31 09:29 | PN ---
Progress Note (short form) - Note Progress Note: CC: afib with embolus S: no cp, palps, dizziness, sob. Current Medications Acetaminophen (Tylenol -) 650 mg PO Q4H PRN PRN Reason: FEVER OR PAIN Last Admin: 10/30/16 17:02 Dose: 650 mg Heparin Sodium (Porcine) (Heparin -) 1,000 unit IVPUSH PRN PRN PRN Reason: Heparin Heparin Sodium (Porcine) (Heparin -) 5,000 unit IVPUSH PRN PRN PRN Reason: Heparin Heparin Sodium (Porcine) 25, (000 unit/ Sodium Chloride) 500 mls @ 20 mls/hr IV TITR JASON; 1,000 UNIT/HR PRN Reason: Protocol Last Admin: 10/31/16 07:25 Dose: 17 mls/hr Lactated Ringer's (Lactated Ringers Solution) 1,000 mls @ 75 mls/hr IV ASDIR [facility] Last Admin: 10/31/16 03:18 Dose: 75 mls/hr Lisinopril (Prinivil) 5 mg PO DAILY [facility] Last Admin: 10/30/16 10:21 Dose: 5 mg Metoprolol Succinate (Toprol Xl -) 50 mg PO DAILY [facility] Last Admin: 10/30/16 10:21 Dose: 50 mg Ranitidine HCl (Zantac -) 150 mg PO BID [facility] Last Admin: 10/30/16 21:54 Dose: 150 mg Tamsulosin HCl (Flomax -) 0.4 mg PO DAILY@0830 [facility] Last Admin: 10/30/16 16:37 Dose: Not Given Vital Signs - 24 hr 10/30/16 10/30/16 10/30/16 10:00 10:14 12:00 Temperature 98.5 F Pulse Rate 68 76 64 Respiratory 18 20 Rate Blood Pressure 126/64 117/70 O2 Sat by Pulse 96 Oximetry (%) 10/30/16 10/30/16 10/30/16 14:00 16:00 18:00 Temperature 99.3 F 99 F 99 F Pulse Rate 66 66 78 Respiratory 20 18 20 Rate Blood Pressure 127/76 128/81 127/84 O2 Sat by Pulse Oximetry (%) 10/30/16 10/30/16 10/30/16 20:00 21:00 22:00 Temperature 98.9 F Pulse Rate 64 62 Respiratory 21 21 18 Rate Blood Pressure 108/73 113/58 O2 Sat by Pulse 96 Oximetry (%) 10/31/16 10/31/16 10/31/16 00:00 02:00 04:00 Temperature 98.6 F Pulse Rate 61 77 60 Respiratory 12 16 18 Rate Blood Pressure 120/51 112/63 135/56 O2 Sat by Pulse Oximetry (%) 10/31/16 10/31/16 06:00 07:35 Temperature 99.3 F Pulse Rate 65 Respiratory 19 Rate Blood Pressure 135/65 O2 Sat by Pulse 98 Oximetry (%) Intake & Output 10/29/16 10/30/16 10/31/16 11/01/16 07:59 07:59 07:59 07:59 Intake Total 1870 2583 Output Total 3 1275 Balance 1867 1308 Weight 184 lb 11 oz 191 lb 5.78 oz nad, calm jvd flat, neck supple ctab, nl effort irregularly irregular. nl s1, s2 2/6 murmur at apex + displaced pmi + bs soft nt nd no hepatosplenomegaly ext without edema. clubbing trace mottling of LLE, diminished pulses, warm aaox3 no carotid bruits no jaundice, diaphoresis. CBC, BMP 10/31/16 05:30 10/31/16 05:30 Laboratory Tests 10/31/16 15:00 Magnesium 2.1 ekg: afib with pvc's/aberrantly conducted complexes. LAD. RBBB. LAFB. ? anterior q waves tele: rate controlled afib, echo here 10/2016: tds. Nl lv/rv size/fn. mod adelaida. 1+ mac, mod-sev MR/TR. RVSP 39. Mild ao dilation. cxr: no active pulmonary disease A/P 89 y/o man with h/o AF (?AC), HTN, BPH, copd, presented to the ED with acute b/ l LE parasthesia and found to have LLE embolus now s/p thrombectomy 10/29. afib - now with LLE embolus s/p thrombectomy. - On heparin drip. Does not appear to have been on AC previously. Will need to clarify with his pmd regarding whether he had contraindications. Fall risk? Plan for PT evaluation per pmd. Monitor hemoglobin trend. - Discussed medication managment with patient and unclear whether he would be able to make regular adjustments to coumadin dosing. Will plan on initiating eliquis 5 mg bid. - echo with nl LV function. mod-sev mr/tr. BP control as mentioned below. No overt signs of volume overload at this time. Will need outpatient follow up of valvular regurgitaiton. - rate controlled on metoprolol - ongoing management of electrolytes. occ NSVT - No recurrence. echo with nl LVEF - con't bb LLE embolus - likely cardiac source, on AC - now s/p Aortogram, LLE angiogram, left iliac artery and SFA open thrombecomy. vascular surgery following. HTN - well controlled on home regimen, con't BB, FATUMA, flomax hypernatremia - resolved with IVF, can likely stop IVF today. - on lasix 20 mg daily as outpatient, tomorrow can assess whether po diuretics can be resumed.
[2016-10-31] MEDS: LISINOPRIL 5 MG TABLET (FP) PO SCH (09:56)
[2016-10-31] MEDS: TAMSULOSIN HCL 0.4 MG CAP.ER.24H (FP) PO SCH (09:56)
[2016-10-31] MEDS: METOPROLOL SUCCINATE 50 MG TAB.SR.24H (FP) PO SCH (09:57)
[2016-10-31] MEDS: RANITIDINE HCL 150 MG TABLET (FP) PO SCH ×2 (09:57→22:13)
--- NOTE | 2016-10-31 10:55 | PN ---
Progress Note, Physician History of Present Illness: LT LEG WD INTACT NO COMPLAIONTS - Current Medication List Current Medications: Active Medications Acetaminophen (Tylenol -) 650 mg PO Q4H PRN PRN Reason: FEVER OR PAIN Last Admin: 10/30/16 17:02 Dose: 650 mg Heparin Sodium (Porcine) (Heparin -) 1,000 unit IVPUSH PRN PRN PRN Reason: Heparin Heparin Sodium (Porcine) (Heparin -) 5,000 unit IVPUSH PRN PRN PRN Reason: Heparin Heparin Sodium (Porcine) 25, (000 unit/ Sodium Chloride) 500 mls @ 20 mls/hr IV TITR JASON; 1,000 UNIT/HR PRN Reason: Protocol Last Admin: 10/31/16 07:25 Dose: 17 mls/hr Lactated Ringer's (Lactated Ringers Solution) 1,000 mls @ 75 mls/hr IV ASDIR [facility] Last Admin: 10/31/16 03:18 Dose: 75 mls/hr Lisinopril (Prinivil) 5 mg PO DAILY [facility] Last Admin: 10/31/16 09:56 Dose: 5 mg Metoprolol Succinate (Toprol Xl -) 50 mg PO DAILY [facility] Last Admin: 10/31/16 09:57 Dose: 50 mg Ranitidine HCl (Zantac -) 150 mg PO BID [facility] Last Admin: 10/31/16 09:57 Dose: 150 mg Tamsulosin HCl (Flomax -) 0.4 mg PO DAILY@0830 [facility] Last Admin: 10/31/16 09:56 Dose: 0.4 mg - Objective Vital Signs: Vital Signs Temperature 98.3 F 10/31/16 10:00 Pulse Rate 74 10/31/16 10:00 Respiratory Rate 18 10/31/16 10:00 Blood Pressure 122/50 10/31/16 10:00 O2 Sat by Pulse Oximetry (%) 98 10/31/16 07:35 Constitutional: Yes: Well Nourished Eyes: Yes: WNL HENT: Yes: WNL Neck: Yes: WNL Cardiovascular: Yes: Pulse Irregular Respiratory: Yes: WNL Gastrointestinal: Yes: WNL ...Rectal Exam: Yes: Deferred Genitourinary: Yes: WNL Breast(s): Yes: WNL Musculoskeletal: Yes: WNL Extremities: Yes: WNL Edema: No Peripheral Pulses WNL: Yes Integumentary: Yes: WNL Wound/Incision: Yes: Clean/Dry Neurological: Yes: WNL Psychiatric: Yes: WNL Labs: CBC, BMP 10/31/16 05:30 10/31/16 05:30 INR, PTT INR 1.12 (0.82-1.09) 10/29/16 20:08 Assessment/Plan CARD TO [facility] ECHO RESULTS IN CONT ALL TX IS TRANSFER TO TELIMETRY WHEN READY P/T TODAYD TO SEE BALANCE AND GAIT
--- NOTE | 2016-10-31 12:00 | PATH ---
Surgical Pathology Report Patient Name: HARI MISHRA Med. Rec. 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 Electronically Signed Eduin Singh M.D. Gross Description Received in formalin labeled "clot left iliac and SFA" is a 2.5 x 2.4 x 0.3 cm aggregate of red-brown blood clot. The specimen is entirely submitted in one cassette. /10/30/201610/30/2016
[2016-10-31] MEDS ORDERED: BENZOCAINE/MENTH/CETYLPYRD CL 1 EACH LOZENGE MM PRN (12:16)
--- NOTE | 2016-10-31 12:53 | PN ---
Teaching Attending Note Name of Resident: Dmitri Oliver ATTENDING PHYSICIAN STATEMENT I saw and evaluated the patient. I reviewed the resident's note and discussed the case with the resident. I agree with the resident's findings and plan as documented. SUBJECTIVE: Pt seen and examined in the ICU. Pain controlled with current regimen. Good peripheral pulses. No shortness of breath or chest pain. OBJECTIVE: Last Vital Signs Temp Pulse Resp BP Pulse Ox 99 F 100 H 21 131/67 98 10/31/16 12:45 10/31/16 12:45 10/31/16 12:45 10/31/16 12:45 10/31/16 07:35 Intake & Output 10/28/16 10/29/16 10/30/16 10/31/16 23:59 23:59 23:59 23:59 Intake Total 600 2649 1654 Output Total 978 300 Balance 600 1671 1354 Weight 180 lb 184 lb 11 oz 191 lb 5.78 oz Gen: NAD at rest Heart: tachycardic, regular Lung: decreased breath sounds at the bases Abd: soft, nontender Ext: no edema CBC, BMP 10/31/16 05:30 10/31/16 05:30 Active Medications Acetaminophen (Tylenol -) 650 mg PO Q4H PRN PRN Reason: FEVER OR PAIN Last Admin: 10/30/16 17:02 Dose: 650 mg Benzocaine/Menthol (Cepacol Lozenge -) 1 each MM Q2H PRN PRN Reason: SORE THROAT Heparin Sodium (Porcine) (Heparin -) 1,000 unit IVPUSH PRN PRN PRN Reason: Heparin Heparin Sodium (Porcine) (Heparin -) 5,000 unit IVPUSH PRN PRN PRN Reason: Heparin Heparin Sodium (Porcine) 25, (000 unit/ Sodium Chloride) 500 mls @ 20 mls/hr IV TITR JASON; 1,000 UNIT/HR PRN Reason: Protocol Last Admin: 10/31/16 07:25 Dose: 17 mls/hr Lisinopril (Prinivil) 5 mg PO DAILY [facility] Last Admin: 10/31/16 09:56 Dose: 5 mg Metoprolol Succinate (Toprol Xl -) 50 mg PO DAILY [facility] Last Admin: 10/31/16 09:57 Dose: 50 mg Ranitidine HCl (Zantac -) 150 mg PO BID [facility] Last Admin: 10/31/16 09:57 Dose: 150 mg Tamsulosin HCl (Flomax -) 0.4 mg PO DAILY@0830 [facility] Last Admin: 10/31/16 09:56 Dose: 0.4 mg ASSESSMENT AND PLAN: Left Iliac/SFA Emboli s/p LLE Angiotram/SFA open thrombectomy Atrial Fibrillation HTN COPD BPH - continue anticoagulation - rate controlled - monitor H/H - BP control - distal pulse monitoring - OOB to chair - can monitor on telemetry
[2016-10-31] MEDS ORDERED: ACETAMINOPHEN 325 MG TABLET (FP) PO PRN (18:11)
[2016-10-31] MEDS ORDERED: HEPARIN NA (PORCINE) 5,000 UNITS/ML 1ML VIAL IVPUSH PRN ×2 (18:11)
[2016-11-01 07:31] LABS: MCH 32.6 pg (25.7-33.7); MCHC 33.5 g/dl (32.0-35.9); MEAN CELL VOLUME 97.2 fl (80-96); PLATELET COUNT 105 K/MM3 (134-434); RDW 14.2 % (11.9-15.9); WHITE BLOOD COUNT 6.8 K/mm3 (4.0-10.0)
[2016-11-01 08:31] LABS: ALBUMIN 2.2 g/dl (3.4-5.0); ANION GAP 10 (8-16); CALCIUM 7.9 mg/dL (8.5-10.1); CO2 24 mmol/L (21-32); COCKROFT - GAULT 76; CREATININE 0.8 mg/dL (0.7-1.3); GLUCOSE,RANDOM 104 mg/dL (74-106); SGOT/AST 13 U/L (15-37); SGPT/ALT 10 U/L (12-78)
[2016-11-01 08:32] LABS: ALK PHOS 50 U/L (45-117); BILIRUBIN,TOTAL 0.9 mg/dL (0.2-1.0); TOT PROT 4.9 g/dl (6.4-8.2)
[2016-11-01] MEDS: METOPROLOL SUCCINATE 50 MG TAB.SR.24H (FP) PO SCH (10:06)
[2016-11-01] MEDS: APIXABAN 5 MG TABLET PO SCH ×2 (10:06→21:08)
[2016-11-01] MEDS: TAMSULOSIN HCL 0.4 MG CAP.ER.24H (FP) PO SCH (10:06)
[2016-11-01] MEDS: LISINOPRIL 5 MG TABLET (FP) PO SCH (10:07)
[2016-11-01] MEDS: RANITIDINE HCL 150 MG TABLET (FP) PO SCH ×2 (10:07→21:09)
--- NOTE | 2016-11-01 11:15 | PN ---
Progress Note (short form) - Note Progress Note: CC: afib with embolus S: no cp, palps, dizziness, sob. Current Medications Generic Name Dose Route Start Last Admin Trade Name Blaire PRN Reason Stop Dose Admin Acetaminophen 650 mg 10/31/16 18:11 Tylenol - PO Q4H PRN FEVER OR PAIN Apixaban 5 mg 11/01/16 10:00 11/01/16 10:06 Eliquis - PO 5 mg BID JASON Administration Benzocaine/Menthol 1 each 10/31/16 12:16 Cepacol Lozenge - MM Q2H PRN SORE THROAT Lisinopril 5 mg 11/01/16 10:00 11/01/16 10:07 Prinivil PO 5 mg DAILY JASON Administration Metoprolol Succinate 50 mg 11/01/16 10:00 11/01/16 10:06 Toprol Xl - PO 50 mg DAILY JASON Administration Ranitidine HCl 150 mg 10/31/16 22:00 11/01/16 10:07 Zantac - PO 150 mg BID JASON Administration Tamsulosin HCl 0.4 mg 11/01/16 08:30 11/01/16 10:06 Flomax - PO 0.4 mg DAILY@0830 JASON Administration Vital Signs Period Temp Pulse Resp BP Sys/Dean Pulse Ox Last 24 Hr 98.5 F-99.5 F 51-100 12-21 114-157/56-67 95-97 nad, calm jvd flat, neck supple ctab, nl effort irregularly irregular. nl s1, s2 2/6 murmur at apex + bs soft nt nd no hepatosplenomegaly ext without edema. clubbing aaox3 no jaundice, diaphoresis. CBC, BMP 11/01/16 05:10 11/01/16 05:10 ekg: afib with pvc's/aberrantly conducted complexes. LAD. RBBB. LAFB. ? anterior q waves tele: rate controlled afib, echo here 10/2016: tds. Nl lv/rv size/fn. mod adelaida. 1+ mac, mod-sev MR/TR. RVSP 39. Mild ao dilation. cxr: no active pulmonary disease A/P 89 y/o man with h/o AF (?AC), HTN, BPH, copd, presented to the ED with acute b/ l LE parasthesia and found to have LLE embolus now s/p thrombectomy 10/29. afib - now with LLE embolus s/p thrombectomy. - on eliquis 5 mg bid. - echo with nl LV function. mod-sev mr/tr. BP control as mentioned below. No overt signs of volume overload at this time. Will need outpatient follow up of valvular regurgitation. - rate controlled on metoprolol occ NSVT - No recurrence. echo with nl LVEF - con't bb LLE embolus - likely cardiac source, on AC - now s/p Aortogram, LLE angiogram, left iliac artery and SFA open thrombecomy. vascular surgery following. HTN - controlled on home regimen, con't BB, FATUMA, flomax hypernatremia - resolved with IVF, can likely stop IVF today. - on lasix 20 mg daily as outpatient, po diuretics can likely be resumed tomorrow
--- NOTE | 2016-11-01 14:18 | PN ---
Progress Note, Physician History of Present Illness: resting comfortibaly toleration diet vss plan ? d/c in am pt tx today eval cont eliqius out pt needs authorisation for meds ? - Current Medication List Current Medications: Active Medications Acetaminophen (Tylenol -) 650 mg PO Q4H PRN PRN Reason: FEVER OR PAIN Apixaban (Eliquis -) 5 mg PO BID [facility] Last Admin: 11/01/16 10:06 Dose: 5 mg Benzocaine/Menthol (Cepacol Lozenge -) 1 each MM Q2H PRN PRN Reason: SORE THROAT Lisinopril (Prinivil) 5 mg PO DAILY [facility] Last Admin: 11/01/16 10:07 Dose: 5 mg Metoprolol Succinate (Toprol Xl -) 50 mg PO DAILY [facility] Last Admin: 11/01/16 10:06 Dose: 50 mg Ranitidine HCl (Zantac -) 150 mg PO BID [facility] Last Admin: 11/01/16 10:07 Dose: 150 mg Tamsulosin HCl (Flomax -) 0.4 mg PO DAILY@0830 [facility] Last Admin: 11/01/16 10:06 Dose: 0.4 mg - Objective Vital Signs: Vital Signs Temperature 98.4 F 11/01/16 10:00 Pulse Rate 99 H 11/01/16 10:42 Respiratory Rate 18 11/01/16 10:00 Blood Pressure 120/62 11/01/16 10:00 O2 Sat by Pulse Oximetry (%) 97 11/01/16 10:42 Labs: CBC, BMP 11/01/16 05:10 11/01/16 05:10 INR, PTT INR 1.12 (0.82-1.09) 10/29/16 20:08
[2016-11-02 08:24] LABS: BASOPHIL 0.4 % (0-2.0); EOSINOPHIL 1.5 % (0-4.5); MCH 32.9 pg (25.7-33.7); MCHC 33.9 g/dl (32.0-35.9); MEAN CELL VOLUME 96.9 fl (80-96); MEAN PLT VOLUME 9.2 fl (7.5-11.1); NEUTROPHILS 60.5 % (42.8-82.8); PLATELET COUNT 114 K/MM3 (134-434); RDW 14.2 % (11.9-15.9); WHITE BLOOD COUNT 6.7 K/mm3 (4.0-10.0)
[2016-11-02] MEDS: APIXABAN 5 MG TABLET PO SCH ×2 (10:26→21:11)
[2016-11-02] MEDS: RANITIDINE HCL 150 MG TABLET (FP) PO SCH ×2 (10:26→21:11)
[2016-11-02] MEDS: LISINOPRIL 5 MG TABLET (FP) PO SCH (10:26)
[2016-11-02] MEDS: METOPROLOL SUCCINATE 50 MG TAB.SR.24H (FP) PO SCH (10:26)
[2016-11-02] MEDS: FUROSEMIDE 20 MG TABLET (FP) PO SCH (10:26)
[2016-11-02] MEDS: TAMSULOSIN HCL 0.4 MG CAP.ER.24H (FP) PO SCH (10:26)
--- NOTE | 2016-11-02 10:58 | PN ---
Progress Note, Physician - Current Medication List Current Medications: Active Medications Acetaminophen (Tylenol -) 650 mg PO Q4H PRN PRN Reason: FEVER OR PAIN Apixaban (Eliquis -) 5 mg PO BID [facility] Last Admin: 11/02/16 10:26 Dose: 5 mg Benzocaine/Menthol (Cepacol Lozenge -) 1 each MM Q2H PRN PRN Reason: SORE THROAT Furosemide (Lasix -) 20 mg PO DAILY [facility] Last Admin: 11/02/16 10:26 Dose: 20 mg Lisinopril (Prinivil) 5 mg PO DAILY [facility] Last Admin: 11/02/16 10:26 Dose: 5 mg Metoprolol Succinate (Toprol Xl -) 50 mg PO DAILY [facility] Last Admin: 11/02/16 10: Dose: 50 mg Ranitidine HCl (Zantac -) 150 mg PO BID [facility] Last Admin: 11/02/16 10:26 Dose: 150 mg Tamsulosin HCl (Flomax -) 0.4 mg PO DAILY@0830 [facility] Last Admin: 11/02/16 10: Dose: 0.4 mg - Objective Vital Signs: Vital Signs Temperature 98.9 F 11/02/16 01:00 Pulse Rate 76 11/02/16 01:00 Respiratory Rate 18 11/02/16 01:00 Blood Pressure 125/66 11/02/16 01:00 O2 Sat by Pulse Oximetry (%) 97 11/01/16 21:00 Labs: CBC, BMP 11/02/16 05:48 11/01/16 05:10 INR, PTT INR 1.12 (0.82-1.09) 10/29/16 20:08 Assessment/Plan pt able to waik bathroom vss h/h lo cbc in am feos4 q day if h/h does not drop will d/c in am
--- NOTE | 2016-11-02 11:49 | PN ---
Progress Note (short form) - Note Progress Note: CC: afib with embolus S: no cp, palps, dizziness, sob. Current Medications Generic Name Dose Route Start Last Admin Trade Name Blaire PRN Reason Stop Dose Admin Acetaminophen 650 mg 10/31/16 18:11 Tylenol - PO Q4H PRN FEVER OR PAIN Apixaban 5 mg 11/01/16 10:00 11/02/16 10:26 Eliquis - PO 5 mg BID [facility] Administration Benzocaine/Menthol 1 each 10/31/16 12:16 Cepacol Lozenge - MM Q2H PRN SORE THROAT Docusate Sodium 100 mg 11/02/16 14:00 Colace - PO TID JASON Ferrous Gluconate 324 mg 11/02/16 12:00 Fergon - PO TIDCM JASON Furosemide 20 mg 11/02/16 10:00 11/02/16 10:26 Lasix - PO 20 mg DAILY [facility] Administration Lisinopril 5 mg 11/01/16 10:00 11/02/16 10:26 Prinivil PO 5 mg DAILY [facility] Administration Metoprolol Succinate 50 mg 11/01/16 10:00 11/02/16 10:26 Toprol Xl - PO 50 mg DAILY [facility] Administration Ranitidine HCl 150 mg 10/31/16 22:00 11/02/16 10:26 Zantac - PO 150 mg BID [facility] Administration Tamsulosin HCl 0.4 mg 11/01/16 08:30 11/02/16 10:26 Flomax - PO 0.4 mg DAILY@0830 [facility] Administration Vital Signs Period Temp Pulse Resp BP Sys/Dean Pulse Ox Last 24 Hr 98.2 F-99.8 F 62-76 18-20 117-127/57-66 97-98 nad, calm jvd flat, neck supple ctab, nl effort irregularly irregular. nl s1, s2 2/6 murmur at apex + bs soft nt nd no hepatosplenomegaly ext without edema. clubbing aaox3 no jaundice, diaphoresis. CBC, BMP 11/02/16 05:48 11/01/16 05:10 ekg: afib with pvc's/aberrantly conducted complexes. LAD. RBBB. LAFB. ? anterior q waves tele: rate controlled afib echo here 10/2016: tds. Nl lv/rv size/fn. mod adelaida. 1+ mac, mod-sev MR/TR. RVSP 39. Mild ao dilation. cxr: no active pulmonary disease A/P 89 y/o man with h/o AF (?AC), HTN, BPH, copd, presented to the ED with acute b/ l LE parasthesia and found to have LLE embolus now s/p thrombectomy 10/29. afib - now with LLE embolus s/p thrombectomy. - on eliquis 5 mg bid. - echo with nl LV function. mod-sev mr/tr. BP control as mentioned below. No overt signs of volume overload at this time. Will need outpatient follow up of valvular regurgitation. - rate controlled on metoprolol occ NSVT - No recurrence. echo with nl LVEF - con't bb LLE embolus - likely cardiac source, on AC - now s/p Aortogram, LLE angiogram, left iliac artery and SFA open thrombecomy. vascular surgery following. HTN - controlled on home regimen, con't BB, FATUMA, flomax hypernatremia - resolved with IVF - on lasix 20 mg daily as outpatient, will resume
[2016-11-02] MEDS: FERROUS GLUCONATE 324 MG TAB (FP) PO SCH ×2 (14:05→17:06)
[2016-11-02] MEDS: DOCUSATE SODIUM 100 MG CAPSULE (FP) PO SCH ×2 (14:05→21:11)
[2016-11-03] MEDS: DOCUSATE SODIUM 100 MG CAPSULE (FP) PO SCH (06:09)
[2016-11-03 07:27] LABS: BASOPHIL 0.6 % (0-2.0); MCH 32.3 pg (25.7-33.7); MCHC 33.3 g/dl (32.0-35.9); MEAN CELL VOLUME 97.1 fl (80-96); MEAN PLT VOLUME 8.6 fl (7.5-11.1); PLATELET COUNT 139 K/MM3 (134-434); RDW 14.4 % (11.9-15.9); WHITE BLOOD COUNT 6.2 K/mm3 (4.0-10.0)
[2016-11-03] MEDS: APIXABAN 5 MG TABLET PO SCH (09:37)
[2016-11-03] MEDS: FERROUS GLUCONATE 324 MG TAB (FP) PO SCH ×2 (09:37→12:20)
[2016-11-03] MEDS: RANITIDINE HCL 150 MG TABLET (FP) PO SCH (09:37)
[2016-11-03] MEDS: LISINOPRIL 5 MG TABLET (FP) PO SCH (09:37)
[2016-11-03] MEDS: FUROSEMIDE 20 MG TABLET (FP) PO SCH (09:38)
[2016-11-03] MEDS: TAMSULOSIN HCL 0.4 MG CAP.ER.24H (FP) PO SCH (09:38)
[2016-11-03] MEDS: METOPROLOL SUCCINATE 50 MG TAB.SR.24H (FP) PO SCH (09:38)
[2016-11-03 10:07] VITALS: BP 134/64; PULSE 60; TEMP 98.8
--- NOTE | 2016-11-03 11:25 | PN ---
Progress Note, Physician - Current Medication List Current Medications: Active Medications Acetaminophen (Tylenol -) 650 mg PO Q4H PRN PRN Reason: FEVER OR PAIN Apixaban (Eliquis -) 5 mg PO BID [facility] Last Admin: 11/03/16 09:37 Dose: 5 mg Benzocaine/Menthol (Cepacol Lozenge -) 1 each MM Q2H PRN PRN Reason: SORE THROAT Docusate Sodium (Colace -) 100 mg PO TID [facility] Last Admin: 11/03/16 06:09 Dose: 100 mg Ferrous Gluconate (Fergon -) 324 mg PO TIDCM [facility] Last Admin: 11/03/16 09:37 Dose: 324 mg Furosemide (Lasix -) 20 mg PO DAILY [facility] Last Admin: 11/03/16 09:38 Dose: 20 mg Lisinopril (Prinivil) 5 mg PO DAILY [facility] Last Admin: 11/03/16 09:37 Dose: 5 mg Metoprolol Succinate (Toprol Xl -) 50 mg PO DAILY [facility] Last Admin: 11/03/16 09:38 Dose: 50 mg Ranitidine HCl (Zantac -) 150 mg PO BID [facility] Last Admin: 11/03/16 09:37 Dose: 150 mg Tamsulosin HCl (Flomax -) 0.4 mg PO DAILY@0830 [facility] Last Admin: 11/03/16 09:38 Dose: 0.4 mg - Objective Vital Signs: Vital Signs Temperature 98.8 F 11/03/16 10:00 Pulse Rate 60 11/03/16 10:00 Respiratory Rate 18 11/03/16 10:00 Blood Pressure 134/64 11/03/16 10:00 O2 Sat by Pulse Oximetry (%) 99 11/02/16 20:53 Labs: CBC, BMP 11/03/16 05:35 11/01/16 05:10 INR, PTT INR 1.12 (0.82-1.09) 10/29/16 20:08 Assessment/Plan pt comfortable vss d/c home today wsill give pt samples elicesar w appt in am 1200 w me goss
--- NOTE | 2016-11-03 11:47 | PN ---
Progress Note (short form) - Note Progress Note: CC: afib with embolus S: no cp, palps, dizziness, sob. Current Medications Generic Name Dose Route Start Last Admin Trade Name Blaire PRN Reason Stop Dose Admin Acetaminophen 650 mg 10/31/16 18:11 Tylenol - PO Q4H PRN FEVER OR PAIN Apixaban 5 mg 11/01/16 10:00 11/03/16 09:37 Eliquis - PO 5 mg BID [facility]ASON Administration Benzocaine/Menthol 1 each 10/31/16 12:16 Cepacol Lozenge - MM Q2H PRN SORE THROAT Docusate Sodium 100 mg 11/02/16 14:00 11/03/16 06:09 Colace - PO 100 mg TID JASON Administration Ferrous Gluconate 324 mg 11/02/16 12:00 11/03/16 09:37 Fergon - PO 324 mg TIDCM JAOSN Administration Furosemide 20 mg 11/02/16 10:00 11/03/16 09:38 Lasix - PO 20 mg DAILY [facility] Administration Lisinopril 5 mg 11/01/16 10:00 11/03/16 09:37 Prinivil PO 5 mg DAILY [facility] Administration Metoprolol Succinate 50 mg 11/01/16 10:00 11/03/16 09:38 Toprol Xl - PO 50 mg DAILY [facility] Administration Ranitidine HCl 150 mg 10/31/16 22:00 11/03/16 09:37 Zantac - PO 150 mg BID [facility] Administration Tamsulosin HCl 0.4 mg 11/01/16 08:30 11/03/16 09:38 Flomax - PO 0.4 mg DAILY@0830 [facility] Administration Vital Signs Period Temp Pulse Resp BP Sys/Dean Pulse Ox Last 24 Hr 98.0 F-99 F 58-83 18-20 132-140/64-88 99 nad, calm jvd flat, neck supple ctab, nl effort irregularly irregular. nl s1, s2 2/6 murmur at apex + bs soft nt nd no hepatosplenomegaly ext without edema. clubbing aaox3 no jaundice, diaphoresis. CBC, BMP 11/03/16 05:35 11/01/16 05:10 ekg: afib with pvc's/aberrantly conducted complexes. LAD. RBBB. LAFB. ? anterior q waves tele: rate controlled afib echo here 10/2016: tds. Nl lv/rv size/fn. mod adelaida. 1+ mac, mod-sev MR/TR. RVSP 39. Mild ao dilation. cxr: no active pulmonary disease A/P 89 y/o man with h/o AF (?AC), HTN, BPH, copd, presented to the ED with acute b/ l LE parasthesia and found to have LLE embolus now s/p thrombectomy 10/29. afib - now with LLE embolus s/p thrombectomy. - on eliquis 5 mg bid. - echo with nl LV function. mod-sev mr/tr. BP control as mentioned below. No overt signs of volume overload at this time. Will need outpatient follow up of valvular regurgitation. - rate controlled on metoprolol occ NSVT - No recurrence. echo with nl LVEF - con't bb LLE embolus - likely cardiac source, on AC - now s/p Aortogram, LLE angiogram, left iliac artery and SFA open thrombecomy. vascular surgery following. HTN - controlled on home regimen, con't BB, FATUMA, flomax hypernatremia - resolved with IVF - on lasix 20 mg daily as outpatient, now resumed cardiac rhodes stable for dc
== END 2016-11-03 13:22 | disposition home or self-care (01) | DRG 271 ==
LOC: JER 19:41 → JERBED 21:25 → JICU 10-30 00:11 → J4W 10-31 17:12
PROVIDERS: ADMIT Family Medicine; ATTEND Family Medicine
PROC: 04CF0ZZ Extirpation of Matter from Left Internal Iliac Artery, Open Approach (ICD-10-PCS; 2016-10-29)
PROC: 3E05017 Introduction of Other Thrombolytic into Peripheral Artery, Open Approach (ICD-10-PCS; 2016-10-29)
PROC: B40DYZZ Plain Radiography of Aorta and Bilateral Lower Extremity Arteries using Other Contrast (ICD-10-PCS; 2016-10-29)
PROC: B40GYZZ Plain Radiography of Left Lower Extremity Arteries using Other Contrast (ICD-10-PCS; 2016-10-29)
PROC: 04CL0ZZ Extirpation of Matter from Left Femoral Artery, Open Approach (ICD-10-PCS; principal; 2016-10-29 21:30)
DX: I74.3 Embolism and thrombosis of arteries of the lower extremities (principal); I74.5 Embolism and thrombosis of iliac artery; E87.0 Hyperosmolality and hypernatremia; I47.2 Ventricular tachycardia; I38 Endocarditis, valve unspecified; I48.91 Unspecified atrial fibrillation; I10 Essential (primary) hypertension; J44.9 Chronic obstructive pulmonary disease, unspecified; N40.0 Benign prostatic hyperplasia without lower urinary tract symptoms; I77.1 Stricture of artery; I99.8 Other disorder of circulatory system
CPT/HCPCS: 36415; 71010-TC; 76000-TC; 80048; 80053; 82550; 83735; 84100; 84484; 85025; 85027; 85610; 85730; 86850; 86900; 86901; 88304-TC; 93005; 93010; 93306-TC; 93926-TC; 94760; 97116-GP; 97161-GP; 99283-25; J1644

== ENCOUNTER 2016-12-06 13:12 | Inpatient (IN) | payer OTHER ==
[2016-12-06 13:18] VITALS: BMI 25.8
--- NOTE | 2016-12-06 14:13 | PDOC ---
History of Present Illness - History of Present Illness Initial Comments: 12/06/16 15:35 The patient is a 89 year old male, with a significant past medical history of AFib, BPH, and left lower extremity angiogram, open thrombectomy, left iliac artery and left superficial femoral artery (10/30/16), who presents to the emergency department with pain and redness to the area to the right of his surgical site noticed by the nurse attendant today. The patient states his home nurse arrived to change his wound vac when she noticed an area of redness and induration to the right of his surgical site. The patient reports the area is tender to the touch and oozes when pressed. As per the patients daughter, her father tried to make an appointment with Dr. Wang, however, he is out of the office this week. The patient states his visiting nurse comes every other day to clean the wound vac which was placed after 2nd follow-up with Dr. Wang. He denies chest pain, shortness of breath, headache and dizziness. He denies fever, chills, nausea, vomit, diarrhea and constipation. He denies dysuria, frequency, urgency and hematuria. Allergies: NKDA PCP - Dr. uQe Breaux <Aaliyah Lawrence - Last Filed: 12/06/16 17:21> - General History Source: Patient Exam Limitations: No Limitations <Davion Gaytan - Last Filed: 12/08/16 07:49> - General Chief Complaint: Wound Infection Stated Complaint: POST-OP/ INFECTION TO LEG Time Seen by Provider: 12/06/16 13:41 Past History <Aaliyah Lawrence - Last Filed: 12/06/16 17:21> - Past Medical History Cardiac Disorders: Yes (A fib) HTN: Yes Other medical history: DVT, MRSA - Surgical History Appendectomy: Yes - Psycho/Social/Smoking Cessation Hx Anxiety: No Suicidal Ideation: No Smoking History: Never smoked Have you smoked in the past 12 months: No Hx Alcohol Use: Yes (SOCIAL) Drug/Substance Use Hx: No Substance Use Type: None Hx Substance Use Treatment: No <Davion Gaytan - Last Filed: 12/08/16 07:49> - Past Medical History Allergies/Adverse Reactions: Allergies Allergy/AdvReac Type Severity Reaction Status Date / Time No Known Allergies Allergy Verified 12/06/16 13:18 Home Medications: Ambulatory Orders Finasteride [Proscar -] 5 mg PO DAILY 10/29/16 Furosemide 20 mg PO DAILY 10/29/16 Lisinopril 5 mg PO DAILY 10/29/16 Metoprolol Tartrate 50 mg PO DAILY 10/29/16 Montelukast Na 10 mg PO DAILY 10/29/16 Tamsulosin HCl 0.4 mg PO DAILY 10/29/16 Apixaban [Eliquis -] 1 tab PO BID 11/10/16 Review of Systems - Review of Systems Able to Perform ROS?: Yes Comments:: 12/06/16 15:35 CONSTITUTIONAL: No reported: Fever, Chills, Diaphoresis, Generalized Weakness, Malaise, Loss of Appetite HEENT: No reported: Rhinorrhea, Nasal Congestion, Throat Pain, Throat Swelling, Difficulty Swallowing, Mouth Swelling, Ear Pain, Eye Pain, Visual Changes CARDIOVASCULAR: No reported: Chest Pain, Syncope, Palpitations, Irregular Heart Rate, Lightheadedness, Peripheral Edema RESPIRATORY: No reported: Cough, Shortness of Breath, SOB with Exertion, Orthopnea, Wheezing , Stridor, Hemoptysis GASTROINTESTINAL: No reported: Abdominal pain, Abdominal Distension, Nausea, Vomiting, Diarrhea, Constipation, Melena, Hematochezia GENITOURINARY: No reported: Dysuria, Frequency, Urgency, Hesitancy, Flank Pain, Genital Pain MUSCULOSKELETAL: No reported: Myalgia, Arthralgia, Joint Swelling, Back pain, Neck Pain SKIN: (+) redness and tenderness to pubic region. No reported: Rash, Itching, Pallor HEMEATOLOGIC/IMMUNOLOGIC: No reported: Easy Bleeding, Easy Bruising, Lymphadenopathy, Frequent infections ENDOCRINE: No reported: Unexplained Weight Gain, Unexplained Weight Loss, Heat Intolerance , Cold Intolerance NEUROLOGIC: No reported: Headache, Focal Weakness, Paresthesias, Vertigo, Lightheadedness, Unsteady Gait, Seizure, Mental Status Changes, Incontinence PSYCHIATRIC: No reported: Anxiety, Depression <Aaliyah Lawrence - Last Filed: 12/06/16 17:21> *Physical Exam - Vital Signs Last Vital Signs Temp Pulse Resp BP Pulse Ox 98.5 F 68 20 140/72 98 12/06/16 13:13 12/06/16 13:13 12/06/16 13:13 12/06/16 13:13 12/06/16 13:13 - Physical Exam Comments: 12/06/16 15:35 GENERAL: The patient is awake, alert, and fully oriented, Nontoxic - in no acute distress. HEAD: Normocephalic, atraumatic. EYES: extraocular movements intact, sclera anicteric, conjunctiva clear. ENT: Normal voice, Moist mucous membranes. NECK: Normal range of motion, supple LUNGS: Breath sounds equal, clear to auscultation bilaterally. No wheezes, no rhonchi, no rales. HEART: (+) irregularly irregular without murmur, rub or gallop. ABDOMEN: Soft, nontender, normoactive bowel sounds. No guarding, no rebound.No CVA tenderness EXTREMITIES: Normal range of motion, no edema. No clubbing or cyanosis. No cords, erythema, or tenderness. NEUROLOGICAL: No facial assymetry, Normal speech, PSYCH: Normal mood, normal affect. SKIN: (+) large erythematous mildly tender, indurated mass to suprapubic region, , nonfluctant. The wound to the left groin is clean and dry without discharge. Warm, Dry, normal turgor, <Aaliyah Lawrence - Last Filed: 12/06/16 17:21> - Vital Signs Last Vital Signs Temp Pulse Resp BP Pulse Ox 98.5 F 68 20 140/72 98 12/06/16 13:13 12/06/16 13:13 12/06/16 13:13 12/06/16 13:13 12/06/16 13:13 <Davion Gaytan - Last Filed: 12/08/16 07:49> Heart Score/ECG Review - ECG Impressions Comment:: 12/06/16 15:56 Twelve-lead EKG was performed and reviewed by me. Irregularly irregular rate of [address] No acute [address] changes <Davion Gaytan - Last Filed: 12/08/16 07:49> ED Treatment Course - LABORATORY CBC & Chemistry Diagram: 12/06/16 15:00 12/06/16 15:00 - ADDITIONAL ORDERS Additional order review: 12/06/16 15:00 RBC 3.42 L D MCV 97.8 H MCHC 32.7 RDW 16.1 H D MPV 8.7 Neutrophils % 75.3 Lymphocytes % 15.4 D Monocytes % 8.4 Eosinophils % 0.6 Basophils % 0.3 <MelindaAaliyah - Last Filed: 12/06/16 17:21> - LABORATORY CBC & Chemistry Diagram: 12/07/16 05:35 12/07/16 05:35 <Davion Gaytan - Last Filed: 12/08/16 07:49> Medical Decision Making - Medical Decision Making 12/06/16 17:18 The patient's PCP, Dr. Que Breaux, was paged via phone answering service at 17:18 requesting a call back for doctor to doctor consult. 12/06/16 17:21 Dr. Braeux returned the call at this time and the patient's case was discussed. <Aaliyah Lawrence - Last Filed: 12/06/16 17:21> - Medical Decision Making 12/06/16 14:12 89y M hx of afib on xerolto, htn, dvt, recent LLE arterial emboli s/p open thrombectomy on 10/29, sent in by wound care for concern for infection. no systemic complaints, on exam pt has a large eerytehmadous mass on the suprapubic region that is non fluctuant. celluitis vs abscess, unclear if communicating with open wound from thrombectomy will obtain blood work and CT of pelvis PMD: Dr. Kinza Breaux. A portion of this note was documented by scribe services under my direction. I have reviewed the details of the note, within reason, and agree with the documentation with the following case summary and management plan written by me 12/06/16 15:57 12/06/16 17:22 ct c/w subq abscess cenetered slightly left paramedian position at lower pelvis traversing penile shift case dw dr. breaux, requests consult from Dr. Jai Alvarez regarding possible I& D will dispo after discussion with eddie will sign pt out to dr. Quiñones for disposition 12/06/16 17:[address] blandon requets consult with vsacular 12/06/16 17:[address] lopez overing for dr. wang he will assess the pt 12/06/16 17:[address] breaux agree with admission for further mangaement Case discussed in detail with admitting physician including history, physical exam and ancillary studies. Admitting physician has assumed care for the patient, will follow all pending diagnostics and will complete the evaluation and treatment. <Davion Gaytan - Last Filed: 12/08/16 07:49> *DC/Admit/Observation/Transfer - Attestations Scribe Attestion: 12/06/16 15:35 Documentation prepared by Aaliyah Lawrence, acting as medical billing service for Davion Gaytan MD, <Aaliyah Lawrence - Last Filed: 12/06/16 17:21> - Discharge Dispostion Admit: Yes <Davion Gaytan - Last Filed: 12/08/16 07:49> Diagnosis at time of Disposition: Abscess of skin and subcutaneous tissue Qualifiers: Site of cutaneous abscess: unspecified site Qualified Code(s): L02.91 - Cutaneous abscess, unspecified Atrial fibrillation Qualifiers: Atrial fibrillation type: chronic Qualified Code(s): I48.2 - Chronic atrial fibrillation - Referrals
[2016-12-06 15:20] LABS: BASOPHIL 0.3 % (0-2.0); EOSINOPHIL 0.6 % (0-4.5); MCHC 32.7 g/dl (32.0-35.9); MEAN CELL VOLUME 97.8 fl (80-96); MEAN PLT VOLUME 8.7 fl (7.5-11.1); NEUTROPHILS 75.3 % (42.8-82.8); PLATELET COUNT 182 K/MM3 (134-434); RDW 16.1 % (11.9-15.9); WHITE BLOOD COUNT 8.2 K/mm3 (4.0-10.0)
[2016-12-06 15:36] LABS: INR 1.68 (0.82-1.09); PROTHROMBIN TIME (PATIENT) 18.7 SEC (9.98-11.88)
[2016-12-06 15:39] LABS: ALBUMIN 2.5 g/dl (3.4-5.0); ALK PHOS 84 U/L (45-117); ANION GAP 6 (8-16); BILIRUBIN,TOTAL 0.5 mg/dL (0.2-1.0); CALCIUM 8.7 mg/dL (8.5-10.1); CO2 29 mmol/L (21-32); CREATININE 1.1 mg/dL (0.7-1.3); GLUCOSE,RANDOM 99 mg/dL (74-106); SGOT/AST 16 U/L (15-37); SGPT/ALT 11 U/L (12-78); TOT PROT 6.3 g/dl (6.4-8.2)
[2016-12-06] MEDS ORDERED: PIPERACILLIN/TAZOB 4.5 GM/100 ML PRE-DOCKED IVPB ONE (17:14)
[2016-12-06] MEDS ORDERED: PIPERACILLIN/TAZOB 4.5 GM 100 ML IVPB ONE (17:23)
--- NOTE | 2016-12-06 19:39 | CONSULT ---
Consult - History of Present Illness History of Present Illness: 89 year old male s/p left femoral thrombectomy by Dr. Diego 5 weeks ago. He developed infection in left groin incision and has been treated as outpatient. Today he was noted to have tender swelling in suprapubic area. No fever. He has tenderness to touch. 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) Cardio/Vascular: Yes: AFIB, HTN, Other (h/o chf?) Pulmonary: Yes: COPD - Alcohol/Substance Use Hx Alcohol Use: Yes (SOCIAL) History of Substance Use: reports: None - Smoking History Smoking history: Never smoked Have you smoked in the past 12 months: No - Social History ADL: Independent History of Recent Travel: No Home Medications - Allergies Allergies/Adverse Reactions: Allergies Allergy/AdvReac Type Severity Reaction Status Date / Time No Known Allergies Allergy Verified 12/06/16 13:18 - Home Medications Home Medications: Ambulatory Orders Finasteride [Proscar -] 5 mg PO DAILY 10/29/16 Furosemide 20 mg PO DAILY 10/29/16 Lisinopril 5 mg PO DAILY 10/29/16 Metoprolol Tartrate 50 mg PO DAILY 10/29/16 Montelukast Na 10 mg PO DAILY 10/29/16 Tamsulosin HCl 0.4 mg PO DAILY 10/29/16 Apixaban [Eliquis -] 1 tab PO BID 11/10/16 Physical Exam Vital Signs: Vital Signs Temperature 96.8 F L 12/06/16 17:01 Pulse Rate 64 12/06/16 17:01 Respiratory Rate 17 12/06/16 17:01 Blood Pressure 134/66 12/06/16 17:01 O2 Sat by Pulse Oximetry (%) 99 12/06/16 17:01 Gastrointestinal: Yes: Soft, Palpable Mass (Suprapubic area with local erythema. No fluctuance. Left groin wound with serous fluid drainage.) Extremities: Yes: WNL (Left foot warm.) Imaging - Results Cat Scan: Image Reviewed (Suprapubic edema along penile prosthesis) Problem List - Problems (1) Abscess of skin and subcutaneous tissue Assessment/Plan: Unclear if this collection is related to recent surgery or is a de dillon problem related to penile implant. There is no obvious fluid to drain. Recommend IV antibiotics and urology evaluation of penile prosthesis. Code(s): L02.91 - CUTANEOUS ABSCESS, UNSPECIFIED Qualifiers: Site of cutaneous abscess: unspecified site Qualified Code(s): L02.91 - Cutaneous abscess, unspecified
[2016-12-06] MEDS: APIXABAN 5 MG TABLET PO SCH (21:23)
[2016-12-07] MEDS: PIPERACILLIN/TAZOB 3.375 GM/50 ML PRE-DOCKED IVPB SCH ×2 (01:07→10:28)
[2016-12-07] MEDS ORDERED: PIPERACILLIN/TAZOB 3.375 GM 3.375 GM in DEXTROSE 5%-WATER - 50 ML IVPB SCH (02:00)
[2016-12-07 07:32] LABS: BASOPHIL 0.3 % (0-2.0); EOSINOPHIL 0.4 % (0-4.5); MCH 32.2 pg (25.7-33.7); MCHC 33.1 g/dl (32.0-35.9); MEAN CELL VOLUME 97.1 fl (80-96); MEAN PLT VOLUME 8.7 fl (7.5-11.1); NEUTROPHILS 76.7 % (42.8-82.8); PLATELET COUNT 154 K/MM3 (134-434); RDW 16.1 % (11.9-15.9); WHITE BLOOD COUNT 8.1 K/mm3 (4.0-10.0)
[2016-12-07 07:41] LABS: ALBUMIN 2.1 g/dl (3.4-5.0); ANION GAP 7 (8-16); CALCIUM 8.2 mg/dL (8.5-10.1); CO2 28 mmol/L (21-32); GLUCOSE,RANDOM 92 mg/dL (74-106)
[2016-12-07 07:44] LABS: ALK PHOS 69 U/L (45-117); BILIRUBIN,TOTAL 0.9 mg/dL (0.2-1.0); SGOT/AST 10 U/L (15-37); SGPT/ALT 9 U/L (12-78); TOT PROT 5.4 g/dl (6.4-8.2)
[2016-12-07] MEDS ORDERED: PT OWN MED DRAWER 7, Y5N ONE (08:15)
[2016-12-07] MEDS: TAMSULOSIN HCL 0.4 MG CAP.ER.24H (FP) PO SCH (08:50)
[2016-12-07] MEDS: LISINOPRIL 5 MG TABLET (FP) PO SCH (09:46)
[2016-12-07] MEDS: FUROSEMIDE 20 MG TABLET (FP) PO SCH (09:46)
[2016-12-07] MEDS: METOPROLOL SUCCINATE 50 MG TAB.SR.24H (FP) PO SCH (09:47)
[2016-12-07] MEDS: FINASTERIDE 5 MG TABLET (FP) PO SCH (09:47)
[2016-12-07] MEDS: APIXABAN 5 MG TABLET PO SCH ×2 (09:47→21:51)
--- NOTE | 2016-12-07 10:52 | HP ---
Admitting History and Physical - Admission Chief Complaint: swelling suprapubic area. 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) Cardiovascular: Yes: AFIB, HTN, Other (h/o chf?) Pulmonary: Yes: COPD Renal/: Yes: BPH - Past Surgical History Additional Past Surgical History: lt leg throbectomy - Smoking History Smoking history: Never smoked Have you smoked in the past 12 months: No - Alcohol/Substance Use Hx Alcohol Use: Yes (SOCIAL) History of Substance Use: reports: None - Social History Usual Living Arrangement: Yes: Other (daughter) ADL: Independent History of Recent Travel: No Home Medications - Allergies Allergies/Adverse Reactions: Allergies Allergy/AdvReac Type Severity Reaction Status Date / Time No Known Allergies Allergy Verified 12/06/16 13:18 - Home Medications Home Medications: Ambulatory Orders Finasteride [Proscar -] 5 mg PO DAILY 10/29/16 Furosemide 20 mg PO DAILY 10/29/16 Lisinopril 5 mg PO DAILY 10/29/16 Metoprolol Tartrate 50 mg PO DAILY 10/29/16 Montelukast Na 10 mg PO DAILY 10/29/16 Tamsulosin HCl 0.4 mg PO DAILY 10/29/16 Apixaban [Eliquis -] 1 tab PO BID 11/10/16 Family Disease History - Family Disease History Family History: Unremarkable Review of Systems - Review of Systems Constitutional: reports: No Symptoms Eyes: reports: No Symptoms HENT: reports: No Symptoms Neck: reports: No Symptoms Cardiovascular: reports: No Symptoms Respiratory: reports: No Symptoms Gastrointestinal: reports: No Symptoms Genitourinary: reports: No Symptoms Breasts: reports: No Symptoms Reported Musculoskeletal: reports: No Symptoms Integumentary: reports: No Symptoms Neurological: reports: No Symptoms Endocrine: reports: No Symptoms Hematology/Lymphatic: reports: No Symptoms Psychiatric: reports: No Symptoms Physical Examination Vital Signs: Vital Signs Temperature 99.2 F 12/07/16 08:00 Pulse Rate 92 H 12/07/16 08:00 Respiratory Rate 18 12/07/16 08:00 Blood Pressure 142/95 12/07/16 08:00 O2 Sat by Pulse Oximetry (%) 98 12/06/16 22:00 Constitutional: Yes: No Distress, Calm Eyes: Yes: WNL HENT: Yes: WNL Neck: Yes: WNL Cardiovascular: Yes: Pulse Irregular Respiratory: Yes: WNL Gastrointestinal: Yes: WNL ...Rectal Exam: Yes: Deferred Renal/: Yes: WNL Breast(s): Yes: WNL, Gynecomastia Extremities: Yes: WNL Edema: No Peripheral Pulses WNL: Yes Integumentary: Yes: WNL Neurological: Yes: WNL ...Motor Strength: WNL Psychiatric: Yes: WNL Labs: CBC, BMP 12/07/16 05:35 12/07/16 05:35 Problem List - Problems (1) Abdominal hematoma Code(s): S36.92XA - CONTUSION OF UNSPECIFIED INTRA-ABDOMINAL ORGAN, INIT ENCNTR Assessment/Plan hot soaks cont atx id to see pt wait until flocculent to do ? sx watch dehydration iv not byet
[2016-12-07] MEDS ORDERED: PHYTONADIONE 10 MG/1 ML AMP IM ONE (10:56)
--- NOTE | 2016-12-07 13:34 | PN ---
Progress Note, Physician Chief Complaint: ID Full note dictated Procedure 10/29 open thrombectomy left iliac artery Wound c.s left groin dated November 23 polymicrobial Now groin red indurated swollen NO fever Temp 99 - Current Medication List Current Medications: Active Medications Apixaban (Eliquis -) 5 mg PO BID [facility] Last Admin: 12/07/16 09:47 Dose: 5 mg Finasteride (Proscar -) 5 mg PO DAILY [facility] Last Admin: 12/07/16 09:47 Dose: 5 mg Furosemide (Lasix -) 20 mg PO DAILY [facility] Last Admin: 12/07/16 09:46 Dose: 20 mg Piperacillin Sod/Tazobactam (Sod 3.375 gm/ Dextrose) 50 mls @ 100 mls/hr IVPB Q8H-IV [facility] PRN Reason: Protocol Stop: 12/11/16 18:29 Lisinopril (Prinivil) 5 mg PO DAILY [facility] Last Admin: 12/07/16 09:46 Dose: 5 mg Metoprolol Succinate (Toprol Xl -) 50 mg PO DAILY [facility] Last Admin: 12/07/16 09:47 Dose: 50 mg Phytonadione ([place] Injection -) 10 mg IM ONCE ONE Stop: 12/07/16 10:57 Tamsulosin HCl (Flomax -) 0.4 mg PO DAILY@0830 [facility] Last Admin: 12/07/16 08:50 Dose: 0.4 mg - Objective Vital Signs: Vital Signs Temperature 99.2 F 12/07/16 08:00 Pulse Rate 92 H 12/07/16 08:00 Respiratory Rate 18 12/07/16 09:00 Blood Pressure 142/95 12/07/16 08:00 O2 Sat by Pulse Oximetry (%) 98 12/07/16 09:00 Labs: CBC, BMP 12/07/16 05:35 12/07/16 05:35 INR, PTT INR 1.68 (0.82-1.09) H D 12/06/16 15:00 Problem List - Problems (1) Abscess of skin and subcutaneous tissue Code(s): L02.91 - CUTANEOUS ABSCESS, UNSPECIFIED Qualifiers: Site of cutaneous abscess: unspecified site Qualified Code(s): L02.91 - Cutaneous abscess, unspecified Assessment/Plan Microbiology Laboratory Tests 12/06/16 12/06/16 15:00 15:00 WBC 8.2 D Hgb 10.9 L D Plt Count 182 D BUN 23 H D Creatinine 1.1 D Creat Clearance w eGFR > 60 OPen thrombectomy with induration redness ? cellulitis abscess Plan Sonogram area for possible I&D CBC ESR Blood cultures sent Vancomycin Zosyn Discussed with Dr Katyln Mcconnell MD
[2016-12-07] MEDS: VANCOMYCIN 1,500 MG in DEXTROSE 5%-WATER - 500 ML IVPB SCH (16:13)
--- NOTE | 2016-12-07 16:35 | EKG ---
Test Reason : Blood Pressure : / mmHG Vent. Rate : 082 BPM Atrial Rate : 079 BPM P-R Int : 000 ms QRS Dur : 144 ms QT Int : 416 ms P-R-T Axes : 000 -63 022 degrees QTc Int : 486 ms ATRIAL FIBRILLATION WITH PREMATURE VENTRICULAR OR ABERRANTLY CONDUCTED COMPLEXES RIGHT BUNDLE BRANCH BLOCK LEFT ANTERIOR FASCICULAR BLOCK BIFASCICULAR BLOCK ABNORMAL ECG WHEN COMPARED WITH ECG OF 29-OCT-2016 19:57, T WAVE INVERSION NOW EVIDENT IN ANTERIOR LEADS Confirmed by ALETA REDDY MD ([id number]) on 12/07/2016 4:35:10 PM Referred By: Confirmed By:ALETA REDDY MD
--- NOTE | 2016-12-07 16:54 | CONS ---
INFECTIOUS DISEASE CONSULTATION DATE OF CONSULTATION: DATE OF DICTATION: 12/07/2016 This is an 89-year-old male status post left femoral thrombectomy October [address] Diego, who I am asked to see because of swelling, redness, and induration at the operative site in the left groin. This was noticed by a visiting nurse at home, who recommended that he be sent to the hospital. Though I do not have complete notes, apparently, he may have had a known abscess in the insertion site of the thrombectomy as the patient had, according to the notes, received prior antibiotics. A wound culture previously dated November 23, had MRSA enterococci and E. coli. He has no fever, chills, or other systemic complaints at the current time, and he is not diabetic. He has no history of recent travel and denies any exposure to pets or unusual hobbies. He was seen in consultation by Dr. Potts earlier. A CT scan of the pelvis was obtained following admission, which shows a subcutaneous abscess along the left lower pelvis ventrally. More laterally, within the left inferior inguinal region is a focal cutaneous and subcutaneous defect thought consistent with the known wound insertion. PAST MEDICAL HISTORY: Includes atrial fibrillation, hypertension, COPD. MEDICATIONS: Proscar, Lasix, lisinopril, metoprolol, Singulair, tamsulosin, Eliquis. ALLERGIES: None known. SOCIAL HISTORY: Nonsmoker. No history of alcohol abuse. FAMILY HISTORY: Reviewed and noncontributory. REVIEW OF SYSTEMS: Respiratory: No cough, shortness of breath. Cardiac: No chest pain, palpitations, syncope. Gastrointestinal: No abdominal pain, nausea, vomiting. Genitourinary: No dysuria or hematuria. PHYSICAL EXAMINATION: General: He was a [id number] male in no acute distress. Vital Signs: The temperature was 99.2, pulse 92, blood pressure 142/95, respirations 18. Neck: Supple. Lungs: Clear to P&A. Heart: S1, S2. Irregular, without audible murmur. Abdomen: Soft, nontender without hepatosplenomegaly. Extremities: Induration of the left groin area which was nontender to touch. An insertion wound for the thrombectomy appeared dry with no purulent drainage noted. No crepitation was palpable. LABORATORY DATA: The white count is 8.2, hemoglobin 10.9, platelets 182. INR 1.68. BUN 23, creatinine 1.1. Liver enzymes within normal limit. ASSESSMENT: An 89-year-old male status post thrombectomy October 29, presents now with redness and induration of the left groin area. Recent culture with MRSA, E. coli, and enterococcus obtained earlier in November. No systemic signs of fever or toxicity at this time. The possibility that the patient may need drainage of an abscess considered and discussed with Dr. Potts. Regarding antibiotic management, would get a set of blood cultures, ESR, CRP. Antibiotic therapy with vancomycin and Zosyn. We will obtain a sonogram of the left pelvic area to look for localized collection which possibly could be drained in Interventional Radiology. MAURA ELLIOTT M.D. ELIDA/[id number]
[2016-12-07] MEDS: PIPERACILLIN/TAZOB 3.375 GM 50 ML IVPB SCH (20:27)
[2016-12-08] MEDS: PIPERACILLIN/TAZOB 3.375 GM 50 ML IVPB SCH ×3 (03:20→17:01)
[2016-12-08 08:09] LABS: BASOPHIL 0.4 % (0-2.0); EOSINOPHIL 0.9 % (0-4.5); MCH 32.2 pg (25.7-33.7); MCHC 33.1 g/dl (32.0-35.9); MEAN CELL VOLUME 97.3 fl (80-96); MEAN PLT VOLUME 8.9 fl (7.5-11.1); NEUTROPHILS 72.5 % (42.8-82.8); PLATELET COUNT 146 K/MM3 (134-434); RDW 15.8 % (11.9-15.9); WHITE BLOOD COUNT 7.6 K/mm3 (4.0-10.0)
[2016-12-08 08:30] LABS: ANION GAP 9 (8-16); CO2 26 mmol/L (21-32); CREATININE 0.9 mg/dL (0.7-1.3); GLUCOSE,RANDOM 84 mg/dL (74-106)
[2016-12-08] MEDS ORDERED: PT OWN MED DRAWER 7, Y5N ONE (09:44)
[2016-12-08] MEDS: TAMSULOSIN HCL 0.4 MG CAP.ER.24H (FP) PO SCH (10:16)
[2016-12-08] MEDS: APIXABAN 5 MG TABLET PO SCH ×2 (10:16→22:01)
[2016-12-08] MEDS: METOPROLOL SUCCINATE 50 MG TAB.SR.24H (FP) PO SCH (10:16)
[2016-12-08] MEDS: FUROSEMIDE 20 MG TABLET (FP) PO SCH (10:16)
[2016-12-08] MEDS: LISINOPRIL 5 MG TABLET (FP) PO SCH (10:16)
[2016-12-08] MEDS: FINASTERIDE 5 MG TABLET (FP) PO SCH (10:16)
--- NOTE | 2016-12-08 13:36 | PN ---
Progress Note, Physician - Current Medication List Current Medications: Active Medications Apixaban (Eliquis -) 5 mg PO BID [facility] Last Admin: 12/08/16 10:16 Dose: 5 mg Finasteride (Proscar -) 5 mg PO DAILY [facility] Last Admin: 12/08/16 10:16 Dose: 5 mg Furosemide (Lasix -) 20 mg PO DAILY [facility] Last Admin: 12/08/16 10:16 Dose: 20 mg Vancomycin HCl 1,500 mg/ (Dextrose) 500 mls @ 250 mls/hr IVPB DAILY@1600 [facility] PRN Reason: Protocol Last Admin: 12/07/16 16:13 Dose: 250 mls/hr Piperacillin Sod/Tazobactam Sod (Zosyn 3.375gm Ivpb (Pre-Docked)) 50 mls @ 100 mls/hr IVPB Q8H-IV [facility] PRN Reason: Protocol Last Admin: 12/08/16 13:28 Dose: 100 mls/hr Lisinopril (Prinivil) 5 mg PO DAILY [facility] Last Admin: 12/08/16 10:16 Dose: 5 mg Metoprolol Succinate (Toprol Xl -) 50 mg PO DAILY [facility] Last Admin: 12/08/16 10:16 Dose: 50 mg Tamsulosin HCl (Flomax -) 0.4 mg PO DAILY@0830 [facility] Last Admin: 12/08/16 10:16 Dose: 0.4 mg - Objective Vital Signs: Vital Signs Temperature 97.8 F 12/08/16 06:00 Pulse Rate 62 12/08/16 06:00 Respiratory Rate 18 12/08/16 09:00 Blood Pressure 133/68 12/08/16 06:00 O2 Sat by Pulse Oximetry (%) 98 12/08/16 09:00 Labs: CBC, BMP 12/08/16 05:53 12/08/16 05:53 INR, PTT INR 1.68 (0.82-1.09) H D 12/06/16 15:00 Problem List - Problems (1) Abdominal hematoma Code(s): S36.92XA - CONTUSION OF UNSPECIFIED INTRA-ABDOMINAL ORGAN, INIT ENCNTR Assessment/Plan pt no bms yet vss give miralox po pt eval tranfer to floor spoke to pt cont tx as is
--- NOTE | 2016-12-08 14:40 | PN ---
Progress Note, Physician Chief Complaint: ID Vancomycin Zosyn - Current Medication List Current Medications: Active Medications Apixaban (Eliquis -) 5 mg PO BID [facility]EDS AT [facility] Last Admin: 12/08/16 10:16 Dose: 5 mg Finasteride (Proscar -) 5 mg PO DAILY [facility] 234 [facility]EDS AT [facility] Last Admin: 12/08/16 10:16 Dose: 5 mg Furosemide (Lasix -) 20 mg PO DAILY [facility]CLUDE 234 BEDS AT [facility] Last Admin: 12/08/16 10:16 Dose: 20 mg Vancomycin HCl 1,500 mg/ (Dextrose) 500 mls @ 250 mls/hr IVPB DAILY@1600 [facility] 234 BEDS AT [facility] PRN Reason: Protocol Last Admin: 12/07/16 16:13 Dose: 250 mls/hr Piperacillin Sod/Tazobactam Sod (Zosyn 3.375gm Ivpb (Pre-Docked)) 50 mls @ 100 mls/hr IVPB Q8H-IV [facility] 234 BEDS AT [facility] PRN Reason: Protocol Last Admin: 12/08/16 13:28 Dose: 100 mls/hr Lisinopril (Prinivil) 5 mg PO DAILY [facility] 234 BEDS AT [facility] Last Admin: 12/08/16 10:16 Dose: 5 mg Metoprolol Succinate (Toprol Xl -) 50 mg PO DAILY [facility] 234 BEDS AT [facility] Last Admin: 12/08/16 10:16 Dose: 50 mg Polyethylene Glycol (Miralax (For Bowel Prep) -) 255 gm PO ONCE ONE Stop: 12/08/16 13:38 Tamsulosin HCl (Flomax -) 0.4 mg PO DAILY@0830 [facility] 234 BEDS AT [facility] Last Admin: 12/08/16 10:16 Dose: 0.4 mg - Objective Vital Signs: Vital Signs Temperature 97.8 F 12/08/16 06:00 Pulse Rate 62 12/08/16 06:00 Respiratory Rate 18 12/08/16 09:00 Blood Pressure 133/68 12/08/16 06:00 O2 Sat by Pulse Oximetry (%) 98 12/08/16 09:00 Constitutional: Yes: Well Nourished, No Distress HENT: Yes: WNL, Atraumatic Neck: Yes: WNL, Supple Cardiovascular: Yes: S1, S2 Respiratory: Yes: WNL, Regular, CTA Bilaterally Gastrointestinal: Yes: WNL, Normal Bowel Sounds, Soft, Other (left groin with serosanguinous drainage tender not fluctuant less swollen) Labs: CBC, BMP 12/08/16 05:53 12/08/16 05:53 INR, PTT INR 1.68 (0.82-1.09) H D 12/06/16 15:00 Problem List - Problems (1) Abscess of skin and subcutaneous tissue Code(s): L02.91 - CUTANEOUS ABSCESS, UNSPECIFIED Qualifiers: Site of cutaneous abscess: unspecified site Qualified Code(s): L02.91 - Cutaneous abscess, unspecified Assessment/Plan Microbiology 12/06/16 14:12 Blood - Peripheral Venous Blood Culture - Preliminary NO GROWTH OBTAINED AFTER 24 HOURS, INCUBATION TO CONTINUE FOR 4 DAYS. 12/06/16 14:12 Blood - Peripheral Venous Blood Culture - Preliminary NO GROWTH OBTAINED AFTER 24 HOURS, INCUBATION TO CONTINUE FOR 4 DAYS. Laboratory Tests 12/08/16 12/08/16 12/08/16 05:53 05:53 05:53 WBC 7.6 Plt Count 146 ESR 85 H BUN 17 Creatinine 0.9 Assessment Phlegmon left groin less swollen today so perhaps responding to antibiotics Plan Continue IV therapy with daily f/u for po in a few days Check Vanco level
[2016-12-08] MEDS ORDERED: POLYETHYLENE GLYCOL 3350 119 GM BTL PO ONE (15:00)
[2016-12-08] MEDS: VANCOMYCIN 1,500 MG in DEXTROSE 5%-WATER - 500 ML IVPB SCH (16:49)
--- NOTE | 2016-12-08 18:59 | PN ---
Progress Note (short form) - Note Progress Note: Patient seen this AM Less pain. Afebrile. Suprapubic swelling less erythema and no fluctuance. Ultrasound did not show any fluid for drainage. Continue warm compress and IV antibiotics. Dr. Diego will return 12/11. Problem List - Problems (1) Abscess of skin and subcutaneous tissue Code(s): L02.91 - CUTANEOUS ABSCESS, UNSPECIFIED Qualifiers: Site of cutaneous abscess: unspecified site Qualified Code(s): L02.91 - Cutaneous abscess, unspecified
[2016-12-09] MEDS: PIPERACILLIN/TAZOB 3.375 GM 50 ML IVPB SCH ×3 (02:17→17:26)
[2016-12-09 07:42] LABS: BASOPHIL 0.4 % (0-2.0); MCH 31.9 pg (25.7-33.7); MEAN CELL VOLUME 96.9 fl (80-96); MEAN PLT VOLUME 8.6 fl (7.5-11.1); PLATELET COUNT 158 K/MM3 (134-434); RDW 15.9 % (11.9-15.9); WHITE BLOOD COUNT 7.9 K/mm3 (4.0-10.0)
[2016-12-09 07:56] LABS: ANION GAP 8 (8-16); CALCIUM 8.2 mg/dL (8.5-10.1); CO2 27 mmol/L (21-32); GLUCOSE,RANDOM 86 mg/dL (74-106)
[2016-12-09 07:59] LABS: CREATININE 0.8 mg/dL (0.7-1.3)
--- NOTE | 2016-12-09 08:35 | PN ---
Progress Note, Physician Chief Complaint: ID Large amount of esperanza pus expressed from the left groin swelling Vancomycin and Zosyn NO fever - Current Medication List Current Medications: Active Medications Apixaban (Eliquis -) 5 mg PO BID [facility] Last Admin: 12/08/16 22:01 Dose: 5 mg Finasteride (Proscar -) 5 mg PO DAILY [facility] Last Admin: 12/08/16 10:16 Dose: 5 mg Furosemide (Lasix -) 20 mg PO DAILY [facility] Last Admin: 12/08/16 10:16 Dose: 20 mg Vancomycin HCl 1,500 mg/ (Dextrose) 500 mls @ 250 mls/hr IVPB DAILY@1600 [facility] PRN Reason: Protocol Last Admin: 12/08/16 16:49 Dose: 250 mls/hr Piperacillin Sod/Tazobactam Sod (Zosyn 3.375gm Ivpb (Pre-Docked)) 50 mls @ 100 mls/hr IVPB Q8H-IV [facility] PRN Reason: Protocol Last Admin: 12/09/16 02:17 Dose: 100 mls/hr Lisinopril (Prinivil) 5 mg PO DAILY [facility] Last Admin: 12/08/16 10:16 Dose: 5 mg Metoprolol Succinate (Toprol Xl -) 50 mg PO DAILY [facility] Last Admin: 12/08/16 10:16 Dose: 50 mg Tamsulosin HCl (Flomax -) 0.4 mg PO DAILY@0830 [facility] Last Admin: 12/08/16 10:16 Dose: 0.4 mg - Objective Vital Signs: Vital Signs Temperature 98.0 F 12/08/16 18:00 Pulse Rate 67 12/09/16 06:00 Respiratory Rate 20 12/09/16 06:00 Blood Pressure 120/55 12/09/16 06:00 O2 Sat by Pulse Oximetry (%) 97 12/08/16 21:00 Constitutional: Yes: Well Nourished, No Distress Neck: Yes: WNL, Supple Cardiovascular: Yes: Regular Rate and Rhythm, S1, S2. No: Murmur Respiratory: Yes: WNL, Regular, CTA Bilaterally Gastrointestinal: Yes: WNL, Normal Bowel Sounds, Soft, Other (GRoing swelling with drainage as above) Labs: CBC, BMP 12/09/16 05:20 INR, PTT INR 1.68 (0.82-1.09) H D 12/06/16 15:00 Problem List - Problems (1) Abscess of skin and subcutaneous tissue Code(s): L02.91 - CUTANEOUS ABSCESS, UNSPECIFIED Qualifiers: Site of cutaneous abscess: unspecified site Qualified Code(s): L02.91 - Cutaneous abscess, unspecified Assessment/Plan Laboratory Tests 12/07/16 12/08/16 12/08/16 15:15 05:53 15:00 WBC Hgb Hct ESR 85 H BUN Creatinine C-Reactive Protein 11.9 H Random Vancomycin 5.123 12/09/16 12/09/16 05:20 05:20 WBC 7.9 Hgb 9.6 L Hct 29.0 L ESR BUN 15 Creatinine 0.8 C-Reactive Protein Random Vancomycin Assessment LEft groin abscess with purulence ? MRSA Plan Wound culture Discussed with Dr Potts Increase Vanco dose 1 gr q12H Continue Chelsea Mcconnell MD
[2016-12-09] MEDS: FINASTERIDE 5 MG TABLET (FP) PO SCH (09:52)
[2016-12-09] MEDS: FUROSEMIDE 20 MG TABLET (FP) PO SCH (09:52)
[2016-12-09] MEDS: LISINOPRIL 5 MG TABLET (FP) PO SCH (09:52)
[2016-12-09] MEDS: TAMSULOSIN HCL 0.4 MG CAP.ER.24H (FP) PO SCH (09:52)
[2016-12-09] MEDS: METOPROLOL SUCCINATE 50 MG TAB.SR.24H (FP) PO SCH (09:52)
[2016-12-09] MEDS: APIXABAN 5 MG TABLET PO SCH ×2 (09:52→21:20)
[2016-12-09] MEDS: VANCOMYCIN 1 GRAM (PRE-DOCKED) 250 ML IVPB SCH ×2 (09:52→21:58)
--- NOTE | 2016-12-09 12:34 | PN ---
Progress Note (short form) - Note Progress Note: Sinus opened in skin over abscess and now draining bloody pus. No cellulitis. Wound dressed. May need to be enlarged if it fails to drain well. Dr. Diego will be back Sunday. Problem List - Problems (1) Abscess of skin and subcutaneous tissue Code(s): L02.91 - CUTANEOUS ABSCESS, UNSPECIFIED Qualifiers: Site of cutaneous abscess: unspecified site Qualified Code(s): L02.91 - Cutaneous abscess, unspecified
[2016-12-10] MEDS: PIPERACILLIN/TAZOB 3.375 GM 50 ML IVPB SCH ×3 (02:29→17:10)
[2016-12-10 06:20] LABS: URINE APPEARANCE CLEAR; URINE BILIRUBIN NEGATIVE (NEGATIVE); URINE BLOOD 1+ (NEGATIVE); URINE COLOR YELLOW; URINE GLUCOSE (UA) NEGATIVE (NEGATIVE); URINE KETONE NEGATIVE (NEGATIVE); URINE LEUK ESTERASE TRACE (NEGATIVE); URINE NITRITE NEGATIVE (NEGATIVE); URINE PROTEIN NEGATIVE (NEGATIVE); URINE UROBILINOGEN NEGATIVE mg/dL (0.2-1.0)
[2016-12-10 06:38] LABS: URINE MUCUS RARE; URINE RBC 2 /hpf (0-3); URINE WBC 13 /hpf (3-5)
[2016-12-10 08:06] LABS: BASOPHIL 0.7 % (0-2.0); EOSINOPHIL 2.3 % (0-4.5); MCH 32.2 pg (25.7-33.7); MCHC 33.5 g/dl (32.0-35.9); MEAN CELL VOLUME 96.3 fl (80-96); MEAN PLT VOLUME 8.6 fl (7.5-11.1); NEUTROPHILS 61.5 % (42.8-82.8); PLATELET COUNT 162 K/MM3 (134-434); RDW 15.6 % (11.9-15.9); WHITE BLOOD COUNT 5.3 K/mm3 (4.0-10.0)
--- NOTE | 2016-12-10 08:29 | PN ---
Progress Note, Physician - Current Medication List Current Medications: Active Medications Apixaban (Eliquis -) 5 mg PO BID [facility] Last Admin: 12/09/16 21:20 Dose: 5 mg Finasteride (Proscar -) 5 mg PO DAILY [facility] Last Admin: 12/09/16 09:52 Dose: 5 mg Furosemide (Lasix -) 20 mg PO DAILY [facility] Last Admin: 12/09/16 09:52 Dose: 20 mg Piperacillin Sod/Tazobactam Sod (Zosyn 3.375gm Ivpb (Pre-Docked)) 50 mls @ 100 mls/hr IVPB Q8H-IV [facility] PRN Reason: Protocol Last Admin: 12/10/16 02:29 Dose: 100 mls/hr Vancomycin HCl (Vancomycin (Pre-Docked)) 250 mls @ 166.667 mls/hr IVPB BID [facility] PRN Reason: Protocol Last Admin: 12/09/16 21:58 Dose: 166.667 mls/hr Lisinopril (Prinivil) 5 mg PO DAILY [facility] Last Admin: 12/09/16 09:52 Dose: 5 mg Metoprolol Succinate (Toprol Xl -) 50 mg PO DAILY [facility] Last Admin: 12/09/16 09:52 Dose: 50 mg Tamsulosin HCl (Flomax -) 0.4 mg PO DAILY@0830 [facility] Last Admin: 12/09/16 09:52 Dose: 0.4 mg - Objective Vital Signs: Vital Signs Temperature 97.8 F 12/10/16 02:00 Pulse Rate 60 12/10/16 02:00 Respiratory Rate 18 12/10/16 02:00 Blood Pressure 110/60 12/10/16 02:00 O2 Sat by Pulse Oximetry (%) 97 12/09/16 21:00 Labs: CBC, BMP 12/10/16 05:50 INR, PTT INR 1.68 (0.82-1.09) H D 12/06/16 15:00 Problem List - Problems (1) Abdominal hematoma Code(s): S36.92XA - CONTUSION OF UNSPECIFIED INTRA-ABDOMINAL ORGAN, INIT ENCNTR Assessment/Plan PT HAD BM APETITE GOOD VSS ABCESS DRANING SX W PK ? WILL SEE IF BECIMES MORE FLOCCULANT F/U LABS IN AM CHK CULT
[2016-12-10 08:38] LABS: ANION GAP 8 (8-16); CALCIUM 8.1 mg/dL (8.5-10.1); CO2 29 mmol/L (21-32); GLUCOSE,RANDOM 92 mg/dL (74-106)
[2016-12-10] MEDS: FUROSEMIDE 20 MG TABLET (FP) PO SCH (09:43)
[2016-12-10] MEDS: VANCOMYCIN 1 GRAM (PRE-DOCKED) 250 ML IVPB SCH ×2 (09:43→21:57)
[2016-12-10] MEDS: LISINOPRIL 5 MG TABLET (FP) PO SCH (09:43)
[2016-12-10] MEDS: TAMSULOSIN HCL 0.4 MG CAP.ER.24H (FP) PO SCH (09:43)
[2016-12-10] MEDS: FINASTERIDE 5 MG TABLET (FP) PO SCH (09:44)
[2016-12-10] MEDS: METOPROLOL SUCCINATE 50 MG TAB.SR.24H (FP) PO SCH (09:44)
[2016-12-10] MEDS: APIXABAN 5 MG TABLET PO SCH ×2 (09:44→21:33)
--- NOTE | 2016-12-10 10:31 | PN ---
Progress Note, Physician History of Present Illness: OOB in chair Reports less groin discomfort Afebrile BC no growth Wound c/s pending - Current Medication List Current Medications: Active Medications Apixaban (Eliquis -) 5 mg PO BID [facility] Last Admin: 12/10/16 09:44 Dose: 5 mg Finasteride (Proscar -) 5 mg PO DAILY [facility] Last Admin: 12/10/16 09:44 Dose: 5 mg Furosemide (Lasix -) 20 mg PO DAILY [facility] Last Admin: 12/10/16 09:43 Dose: 20 mg Piperacillin Sod/Tazobactam Sod (Zosyn 3.375gm Ivpb (Pre-Docked)) 50 mls @ 100 mls/hr IVPB Q8H-IV [facility] PRN Reason: Protocol Last Admin: 12/10/16 09:43 Dose: 100 mls/hr Vancomycin HCl (Vancomycin (Pre-Docked)) 250 mls @ 166.667 mls/hr IVPB BID [facility] PRN Reason: Protocol Last Admin: 12/10/16 09:43 Dose: 166.667 mls/hr Lisinopril (Prinivil) 5 mg PO DAILY [facility] Last Admin: 12/10/16 09:43 Dose: 5 mg Metoprolol Succinate (Toprol Xl -) 50 mg PO DAILY [facility] Last Admin: 12/10/16 09:44 Dose: 50 mg Tamsulosin HCl (Flomax -) 0.4 mg PO DAILY@0830 [facility] Last Admin: 12/10/16 09:43 Dose: 0.4 mg - Objective Vital Signs: Vital Signs Temperature 97.8 F 12/10/16 02:00 Pulse Rate 60 12/10/16 02:00 Respiratory Rate 18 12/10/16 02:00 Blood Pressure 110/60 12/10/16 02:00 O2 Sat by Pulse Oximetry (%) 97 12/09/16 21:00 Constitutional: Yes: No Distress Eyes: Yes: Conjunctiva Clear Cardiovascular: Yes: Regular Rate and Rhythm, S1, S2 Respiratory: Yes: CTA Bilaterally Gastrointestinal: Yes: Normal Bowel Sounds, Soft, Other (+ Induration L suprapubic area No expressible pus). No: Tenderness Labs: CBC, BMP 12/10/16 05:50 12/10/16 05:50 INR, PTT INR 1.68 (0.82-1.09) H D 07/19/17 15:00 Assessment/Plan L groin soft tissue abscess S/P open thrombectomy Await wound c/s Continue zosyn/ vancomycin
[2016-12-11] MEDS: PIPERACILLIN/TAZOB 3.375 GM 50 ML IVPB SCH ×2 (01:43→16:37)
[2016-12-11 07:07] LABS: BASOPHIL 0.8 % (0-2.0); EOSINOPHIL 3.9 % (0-4.5); MCH 32.2 pg (25.7-33.7); MCHC 33.7 g/dl (32.0-35.9); MEAN CELL VOLUME 95.6 fl (80-96); MEAN PLT VOLUME 8.5 fl (7.5-11.1); NEUTROPHILS 53.6 % (42.8-82.8); PLATELET COUNT 177 K/MM3 (134-434); RDW 15.9 % (11.9-15.9); WHITE BLOOD COUNT 4.6 K/mm3 (4.0-10.0)
[2016-12-11 07:45] LABS: ANION GAP 7 (8-16); CO2 26 mmol/L (21-32); CREATININE 0.9 mg/dL (0.7-1.3); GLUCOSE,RANDOM 87 mg/dL (74-106)
--- NOTE | 2016-12-11 10:04 | PN ---
Progress Note, Physician Chief Complaint: ID Offers no complaints Zosyn & Vanco - Current Medication List Current Medications: Active Medications Apixaban (Eliquis -) 5 mg PO BID [facility] Last Admin: 12/10/16 21:33 Dose: 5 mg Finasteride (Proscar -) 5 mg PO DAILY [facility] Last Admin: 12/10/16 09:44 Dose: 5 mg Furosemide (Lasix -) 20 mg PO DAILY [facility] Last Admin: 12/10/16 09:43 Dose: 20 mg Vancomycin HCl (Vancomycin (Pre-Docked)) 250 mls @ 166.667 mls/hr IVPB BID [facility] PRN Reason: Protocol Last Admin: 12/10/16 21:57 Dose: 166.667 mls/hr Lisinopril (Prinivil) 5 mg PO DAILY [facility] Last Admin: 12/10/16 09:43 Dose: 5 mg Metoprolol Succinate (Toprol Xl -) 50 mg PO DAILY [facility] Last Admin: 12/10/16 09:44 Dose: 50 mg Tamsulosin HCl (Flomax -) 0.4 mg PO DAILY@0830 [facility] Last Admin: 12/10/16 09:43 Dose: 0.4 mg - Objective Vital Signs: Vital Signs Temperature 98.1 F 12/11/16 05:51 Pulse Rate 58 L 12/11/16 05:51 Respiratory Rate 18 12/11/16 05:51 Blood Pressure 139/65 12/11/16 05:51 O2 Sat by Pulse Oximetry (%) 98 12/10/16 20:31 Constitutional: Yes: Well Nourished, No Distress Eyes: Yes: WNL, Conjunctiva Clear HENT: Yes: WNL, Atraumatic Neck: Yes: WNL, Supple Respiratory: Yes: WNL, Regular, CTA Bilaterally Gastrointestinal: Yes: WNL, Normal Bowel Sounds, Soft, Other (Groin less indurated less drainage virutally none only little sanguinous drainage). No: Tenderness, Tenderness, Epigastrium Labs: CBC, BMP 12/11/16 05:35 12/11/16 05:35 INR, PTT INR 1.68 (0.82-1.09) H D 12/06/16 15:00 Problem List - Problems (1) Abscess of skin and subcutaneous tissue Code(s): L02.91 - CUTANEOUS ABSCESS, UNSPECIFIED Qualifiers: Site of cutaneous abscess: unspecified site Qualified Code(s): L02.91 - Cutaneous abscess, unspecified Assessment/Plan Microbiology 12/09/16 10:30 Groin Gram Stain - Final 12/09/16 10:30 Groin Wound Culture - Preliminary Presumptive Mrsa (Pbp2a Pos) 12/06/16 14:12 Blood - Peripheral Venous Blood Culture - Preliminary NO GROWTH OBTAINED AFTER 96 HOURS, INCUBATION TO CONTINUE FOR 1 DAYS. 12/06/16 14:12 Blood - Peripheral Venous Blood Culture - Preliminary NO GROWTH OBTAINED AFTER 96 HOURS, INCUBATION TO CONTINUE FOR 1 DAYS. Laboratory Tests 12/07/16 12/08/16 12/08/16 15:15 05:53 15:00 WBC Hgb Hct Plt Count ESR 85 H C-Reactive Protein 11.9 H Random Vancomycin 5.123 12/11/16 05:35 WBC 4.6 Hgb 9.1 L Hct 27.0 L Plt Count 177 ESR C-Reactive Protein Random Vancomycin Assessment Left groin abscess MRSA seems to be improving Plan Continue vancomycin another 48 hours in pt then oral Discussed Dr Diego and Ioana Seems to be improving Repeat ESR and CRP Enedina CRAVEN
[2016-12-11] MEDS: FUROSEMIDE 20 MG TABLET (FP) PO SCH (10:23)
[2016-12-11] MEDS: TAMSULOSIN HCL 0.4 MG CAP.ER.24H (FP) PO SCH (10:23)
[2016-12-11] MEDS: VANCOMYCIN 1 GRAM (PRE-DOCKED) 250 ML IVPB SCH ×2 (10:24→16:37)
[2016-12-11] MEDS: APIXABAN 5 MG TABLET PO SCH (10:24)
[2016-12-11] MEDS: LISINOPRIL 5 MG TABLET (FP) PO SCH (10:24)
[2016-12-11] MEDS: FINASTERIDE 5 MG TABLET (FP) PO SCH (10:24)
[2016-12-11] MEDS: METOPROLOL SUCCINATE 50 MG TAB.SR.24H (FP) PO SCH (10:24)
--- NOTE | 2016-12-11 10:28 | PN ---
Progress Note, Physician - Current Medication List Current Medications: Active Medications Apixaban (Eliquis -) 5 mg PO BID [facility] Last Admin: 12/11/16 10:24 Dose: 5 mg Finasteride (Proscar -) 5 mg PO DAILY [facility] Last Admin: 12/11/16 10:24 Dose: 5 mg Furosemide (Lasix -) 20 mg PO DAILY [facility] Last Admin: 12/11/16 10:23 Dose: 20 mg Vancomycin HCl (Vancomycin (Pre-Docked)) 250 mls @ 166.667 mls/hr IVPB BID [facility] PRN Reason: Protocol Last Admin: 12/11/16 10:24 Dose: 166.667 mls/hr Lisinopril (Prinivil) 5 mg PO DAILY [facility] Last Admin: 12/11/16 10:24 Dose: 5 mg Metoprolol Succinate (Toprol Xl -) 50 mg PO DAILY [facility] Last Admin: 12/11/16 10:24 Dose: 50 mg Tamsulosin HCl (Flomax -) 0.4 mg PO DAILY@0830 [facility] Last Admin: 12/11/16 10:23 Dose: 0.4 mg - Objective Vital Signs: Vital Signs Temperature 97.6 F 12/11/16 10:25 Pulse Rate 80 12/11/16 10:25 Respiratory Rate 20 12/11/16 10:25 Blood Pressure 120/55 12/11/16 10:25 O2 Sat by Pulse Oximetry (%) 98 12/10/16 20:31 Labs: CBC, BMP 12/11/16 05:35 12/11/16 05:35 INR, PTT INR 1.68 (0.82-1.09) H D 12/06/16 15:00 Problem List - Problems (1) Abdominal hematoma Code(s): S36.92XA - CONTUSION OF UNSPECIFIED INTRA-ABDOMINAL ORGAN, INIT ENCNTR Assessment/Plan pt ab cess draining pt no complaints vss labs ok vasc to see if pk warrented
--- NOTE | 2016-12-11 11:53 | PN ---
Progress Note (short form) - Note Progress Note: VAscular Surgery Pt seen and examined. Left groin still draining pus upon palpation. Will do I&D of left groin tom. Vasquez on hold. Jaime Diego DO
[2016-12-12 07:53] LABS: BASOPHIL 0.7 % (0-2.0); EOSINOPHIL 3.4 % (0-4.5); MCH 32.2 pg (25.7-33.7); MCHC 33.5 g/dl (32.0-35.9); MEAN PLT VOLUME 7.8 fl (7.5-11.1); NEUTROPHILS 59.3 % (42.8-82.8); PLATELET COUNT 196 K/MM3 (134-434); RDW 15.6 % (11.9-15.9); WHITE BLOOD COUNT 4.4 K/mm3 (4.0-10.0)
[2016-12-12 08:05] LABS: ANION GAP 7 (8-16); CALCIUM 8.1 mg/dL (8.5-10.1); CO2 26 mmol/L (21-32); CREATININE 0.9 mg/dL (0.7-1.3); GLUCOSE,RANDOM 90 mg/dL (74-106)
[2016-12-12] MEDS: TAMSULOSIN HCL 0.4 MG CAP.ER.24H (FP) PO SCH (08:17)
[2016-12-12] MEDS: LISINOPRIL 5 MG TABLET (FP) PO SCH (10:01)
[2016-12-12] MEDS: METOPROLOL SUCCINATE 50 MG TAB.SR.24H (FP) PO SCH (10:01)
[2016-12-12] MEDS: FINASTERIDE 5 MG TABLET (FP) PO SCH (10:49)
[2016-12-12] MEDS: FUROSEMIDE 20 MG TABLET (FP) PO SCH (10:49)
--- NOTE | 2016-12-12 11:34 | PN ---
Progress Note, Physician - Current Medication List Current Medications: Active Medications Apixaban (Eliquis -) 5 mg PO BID [facility] Last Admin: 12/11/16 10:24 Dose: 5 mg Finasteride (Proscar -) 5 mg PO DAILY [facility] Last Admin: 12/12/16 10:49 Dose: Not Given Furosemide (Lasix -) 20 mg PO DAILY [facility] Last Admin: 12/12/16 10:49 Dose: Not Given Vancomycin HCl (Vancomycin (Pre-Docked)) 250 mls @ 200 mls/hr IVPB Q24H [facility] Last Admin: 12/11/16 16:37 Dose: Not Given Lisinopril (Prinivil) 10 mg PO DAILY [facility] Metoprolol Succinate (Toprol Xl -) 50 mg PO DAILY [facility] Last Admin: 12/12/16 10:01 Dose: 50 mg Tamsulosin HCl (Flomax -) 0.4 mg PO DAILY@0830 [facility] Last Admin: 12/12/16 08:17 Dose: Not Given - Objective Vital Signs: Vital Signs Temperature 97.6 F 12/12/16 10:00 Pulse Rate 61 12/12/16 10:00 Respiratory Rate 20 12/12/16 10:00 Blood Pressure 149/100 12/12/16 10:00 O2 Sat by Pulse Oximetry (%) 96 12/11/16 20:25 Labs: CBC, BMP 12/12/16 06:00 12/12/16 06:00 INR, PTT INR 1.68 (0.82-1.09) H D 12/06/16 15:00 Problem List - Problems (1) Abdominal hematoma Code(s): S36.92XA - CONTUSION OF UNSPECIFIED INTRA-ABDOMINAL ORGAN, INIT ENCNTR Assessment/Plan pt comfotables vss i and d
[2016-12-12] MEDS ORDERED: ONDANSETRON 4 MG/2 ML VIAL IVPUSH PRN ×2 (12:21→13:36)
[2016-12-12] MEDS ORDERED: PROMETHAZINE HCL 25 MG/1 ML VIAL IVPUSH PRN ×2 (12:21→13:36)
[2016-12-12] MEDS ORDERED: LACTATED RINGERS SOLUTION 1,000 ML IV SCH (12:30)
[2016-12-12] MEDS ORDERED: LIDOCAINE HCL 1%, 10 MG/ML (20ML VIAL) IJ ONE ×2 (12:59)
--- NOTE | 2016-12-12 13:25 | OP ---
Operative Note - Note: Operative Date: 12/12/16 Pre-Operative Diagnosis: Left groin abscess Operation: Incision and drainage of left groin abscess Findings: loculated abscess in left groin minimal drainage of pus broke up all loculations and packed area cultures taken Post-Operative Diagnosis: Same as Pre-op Surgeon: Jaime Diego Anesthesia: Fractional Estimated Blood Loss (mls): 20 Operative Report Dictated: Yes
--- NOTE | 2016-12-12 13:27 | PN ---
Progress Note (short form) - Note Progress Note: Vascular Surgery I&D of left groin performed. there was a loculation at the area of induration. All loculations broken. I packed the area. minimal pus was found. Cont IV antibiotics. Jaime wang DO
[2016-12-12] MEDS: LACTATED RINGERS SOLUTION 1,000 ML IV SCH (13:30)
[2016-12-12] MEDS ORDERED: PHYTONADIONE 10 MG/1 ML AMP IM ONE (14:15)
[2016-12-12] MEDS ORDERED: VANCOMYCIN 1 GRAM (PRE-DOCKED) 250 ML IVPB SCH (15:00)
[2016-12-12] MEDS: APIXABAN 5 MG TABLET PO SCH (21:22)
[2016-12-13 07:33] LABS: BASOPHIL 0.4 % (0-2.0); EOSINOPHIL 1.3 % (0-4.5); MCH 31.9 pg (25.7-33.7); MEAN CELL VOLUME 96.6 fl (80-96); MEAN PLT VOLUME 8.1 fl (7.5-11.1); NEUTROPHILS 72.6 % (42.8-82.8); PLATELET COUNT 192 K/MM3 (134-434); RDW 15.8 % (11.9-15.9)
[2016-12-13 07:55] LABS: ANION GAP 5 (8-16); CALCIUM 8.2 mg/dL (8.5-10.1); CO2 28 mmol/L (21-32); CREATININE 0.9 mg/dL (0.7-1.3); GLUCOSE,RANDOM 94 mg/dL (74-106)
--- NOTE | 2016-12-13 08:26 | PN ---
Progress Note, Physician Chief Complaint: ID Yesterday Dr Diego opened wound loculation No pus seen - Current Medication List Current Medications: Active Medications Apixaban (Eliquis -) 5 mg PO BID [facility] Last Admin: 12/12/16 21:22 Dose: 5 mg Fentanyl (Sublimaze Injection -) 50 mcg IVPUSH [id number] PRN PRN Reason: PAIN Stop: 12/15/16 12:22 Finasteride (Proscar -) 5 mg PO DAILY [facility] Furosemide (Lasix -) 20 mg PO DAILY [facility] Lactated Ringer's (Lactated Ringers Solution) 1,000 mls @ 125 mls/hr IV ASDIR [facility] Last Admin: 12/12/16 13:30 Dose: 125 mls/hr Vancomycin HCl (Vancomycin (Pre-Docked)) 250 mls @ 200 mls/hr IVPB Q24H [facility] Last Admin: 12/12/16 14:55 Dose: 200 mls/hr Lisinopril (Prinivil) 10 mg PO DAILY [facility] Metoprolol Succinate (Toprol Xl -) 50 mg PO DAILY [facility] Tamsulosin HCl (Flomax -) 0.4 mg PO DAILY@0830 [facility] - Objective Vital Signs: Vital Signs Temperature 98.9 F 12/13/16 06:32 Pulse Rate 71 12/13/16 06:32 Respiratory Rate 20 12/13/16 06:32 Blood Pressure 127/61 12/13/16 06:32 O2 Sat by Pulse Oximetry (%) 96 12/12/16 21:00 Constitutional: Yes: Well Nourished, No Distress Neck: Yes: WNL, Supple Cardiovascular: Yes: Regular Rate and Rhythm, S1, S2. No: Murmur Respiratory: Yes: WNL, Regular, CTA Bilaterally Gastrointestinal: Yes: WNL, Normal Bowel Sounds, Soft, Other (groin induration with no tenderness bloody drainage on dressing) Labs: CBC, BMP 12/13/16 06:10 INR, PTT INR 1.68 (0.82-1.09) H D 12/06/16 15:00 Problem List - Problems (1) Abscess of skin and subcutaneous tissue Code(s): L02.91 - CUTANEOUS ABSCESS, UNSPECIFIED Qualifiers: Site of cutaneous abscess: unspecified site Qualified Code(s): L02.91 - Cutaneous abscess, unspecified Assessment/Plan Microbiology 12/09/16 10:30 Groin Gram Stain - Final 12/09/16 10:30 Groin Wound Culture - Final Mr S Aureus 12/06/16 14:12 Blood - Peripheral Venous Blood Culture - Final NO GROWTH AFTER 5 DAYS INCUBATION 12/06/16 14:12 Blood - Peripheral Venous Blood Culture - Final NO GROWTH AFTER 5 DAYS INCUBATION Laboratory Tests 12/11/16 12/12/16 12/12/16 10:35 06:00 06:00 WBC Hgb Hct Plt Count ESR 35 H BUN 21 H Creatinine 0.9 Vancomycin Pre-Dose 18.860 H* 12/13/16 06:10 WBC 7.0 D Hgb 9.7 L Hct 29.3 L Plt Count 192 ESR BUN Creatinine Vancomycin Pre-Dose Assessment MRSA abscess groin post I&D yesterday Plan Continue IV Vancom today with discharge tomorrow on Linezolid 600 mg bid Enedina CRAVEN
[2016-12-13] MEDS: TAMSULOSIN HCL 0.4 MG CAP.ER.24H (FP) PO SCH (08:44)
[2016-12-13] MEDS ORDERED: PT OWN MED DRAWER 7, Y5N ONE (09:44)
[2016-12-13] MEDS: LISINOPRIL 10 MG TABLET (FP) PO SCH (09:49)
[2016-12-13] MEDS: METOPROLOL SUCCINATE 50 MG TAB.SR.24H (FP) PO SCH (09:50)
[2016-12-13] MEDS: FUROSEMIDE 20 MG TABLET (FP) PO SCH (09:50)
[2016-12-13] MEDS: FINASTERIDE 5 MG TABLET (FP) PO SCH (09:50)
[2016-12-13] MEDS: APIXABAN 5 MG TABLET PO SCH ×2 (09:50→22:50)
[2016-12-13] MEDS ORDERED: LISINOPRIL 10 MG TABLET (FP) PO SCH (10:00)
[2016-12-13] MEDS: LACTATED RINGERS SOLUTION 1,000 ML IV SCH (13:41)
--- NOTE | 2016-12-13 13:51 | PN ---
Progress Note, Physician - Current Medication List Current Medications: Active Medications Apixaban (Eliquis -) 5 mg PO BID [facility] Last Admin: 12/13/16 09:50 Dose: 5 mg Fentanyl (Sublimaze Injection -) 50 mcg IVPUSH [id number] PRN PRN Reason: PAIN Stop: 12/15/16 12:22 Finasteride (Proscar -) 5 mg PO DAILY [facility] Last Admin: 12/13/16 09:50 Dose: 5 mg Furosemide (Lasix -) 20 mg PO DAILY [facility] Last Admin: 12/13/16 09:50 Dose: 20 mg Lactated Ringer's (Lactated Ringers Solution) 1,000 mls @ 125 mls/hr IV ASDIR [facility] Last Admin: 12/13/16 13:41 Dose: Not Given Vancomycin HCl (Vancomycin (Pre-Docked)) 250 mls @ 200 mls/hr IVPB Q24H [facility] Last Admin: 12/12/16 14:55 Dose: 200 mls/hr Lisinopril (Prinivil) 10 mg PO DAILY [facility] Last Admin: 12/13/16 09:49 Dose: 10 mg Metoprolol Succinate (Toprol Xl -) 50 mg PO DAILY [facility] Last Admin: 12/13/16 09:50 Dose: 50 mg Tamsulosin HCl (Flomax -) 0.4 mg PO DAILY@0830 [facility] Last Admin: 12/13/16 08:44 Dose: 0.4 mg - Objective Vital Signs: Vital Signs Temperature 98.2 F 12/13/16 08:43 Pulse Rate 77 12/13/16 08:43 Respiratory Rate 18 12/13/16 08:43 Blood Pressure 146/62 12/13/16 08:43 O2 Sat by Pulse Oximetry (%) 96 12/13/16 09:00 Labs: CBC, BMP 12/13/16 06:10 12/13/16 06:10 INR, PTT INR 1.68 (0.82-1.09) H D 12/06/16 15:00 Problem List - Problems (1) Abdominal hematoma Code(s): S36.92XA - CONTUSION OF UNSPECIFIED INTRA-ABDOMINAL ORGAN, INIT ENCNTR Assessment/Plan pt comfortable bm good oob vss pk wd draining well d/c in am po linezoid po bid 600 mg
--- NOTE | 2016-12-13 13:55 | OP ---
DATE OF OPERATION: 12/12/2016 PREOPERATIVE DIAGNOSIS: Abscess left groin. POSTOPERATIVE DIAGNOSIS: Abscess left groin. PROCEDURE: Incision and drainage of left groin abscess. SURGEON: Jaime Devries DO ANESTHESIA: Fractional. BLOOD LOSS: 20 mL. INDICATIONS: The patient is an 89-year-old male who had open thrombectomy performed of the left groin a couple of months ago and then developed a lymphocele and an abscess. He now has an abscess in his left groin with induration, and it was decided that he would need to have it drained. The patient was consented for the procedure understanding all risks, benefits, and alternatives and taken to the operating room. DESCRIPTION OF PROCEDURE: Once in the operating room, he was laid on the operating table in a supine position. The area of the left groin was prepped and draped in a sterile surgical manner. We then went ahead and injected 10 mL of lidocaine 1% over the area of induration, and we then took a No. 15 blade and made a 3-cm incision. We then cultured the fluid that came out. Not a lot of pus came out of the area. We then finger swept inside, and we found that there was a giant loculated lesion, and all of the loculations were taken down out, and the area became nice and flat. We then irrigated the area copiously and then packed it with 1/2-inch iodoform packing. Then 4x4s and Tegaderms were placed. The patient tolerated the procedure well with no complication. The patient was transferred to the PACU in stable condition. JAIME DEVRIES DO MISSILE TRACKING TECHNICIAN/[id number]
[2016-12-13] MEDS: VANCOMYCIN 1 GRAM (PRE-DOCKED) 250 ML IVPB SCH (14:16)
[2016-12-13] MEDS ORDERED: LINEZOLID 600 MG TABLET (RESTRICTED TO ID) PO SCH (22:00)
[2016-12-14] MEDS: TAMSULOSIN HCL 0.4 MG CAP.ER.24H (FP) PO SCH (08:18)
[2016-12-14] MEDS ORDERED: LINEZOLID 600 MG TABLET (RESTRICTED TO ID) PO ONE (10:00)
[2016-12-14 10:04] VITALS: BP 118/50
[2016-12-14] MEDS ORDERED: PT OWN MED DRAWER 7, Y5N ONE (10:19)
--- NOTE | 2016-12-14 10:27 | PN ---
Progress Note (short form) - Note Progress Note: POD #2 s/p Left groin I&D Alert. Sitting at bedside without complaint. AVSS. Afeb. Problem List - Problems (1) Abscess of skin and subcutaneous tissue Assessment/Plan: Change dressing as ordered prior to discharge today Patient instructed to f/u with Dr. Diego in [facility] 12/15/[address] Diego, thank you for the opportunity to participate in your patient's care. Code(s): L02.91 - CUTANEOUS ABSCESS, UNSPECIFIED Qualifiers: Site of cutaneous abscess: unspecified site Qualified Code(s): L02.91 - Cutaneous abscess, unspecified
[2016-12-14] MEDS: FINASTERIDE 5 MG TABLET (FP) PO SCH (10:32)
[2016-12-14] MEDS: APIXABAN 5 MG TABLET PO SCH (10:33)
[2016-12-14] MEDS: METOPROLOL SUCCINATE 50 MG TAB.SR.24H (FP) PO SCH (10:33)
[2016-12-14] MEDS: FUROSEMIDE 20 MG TABLET (FP) PO SCH (10:35)
[2016-12-14] MEDS: LISINOPRIL 10 MG TABLET (FP) PO SCH (10:35)
--- NOTE | 2016-12-14 11:07 | PN ---
Progress Note, Physician - Current Medication List Current Medications: Active Medications Apixaban (Eliquis -) 5 mg PO BID [facility] Last Admin: 12/14/16 10:33 Dose: 5 mg Fentanyl (Sublimaze Injection -) 50 mcg IVPUSH [id number] PRN PRN Reason: PAIN Stop: 12/15/16 12:22 Finasteride (Proscar -) 5 mg PO DAILY [facility] Last Admin: 12/14/16 10:32 Dose: 5 mg Furosemide (Lasix -) 20 mg PO DAILY [facility] Last Admin: 12/14/16 10:35 Dose: Not Given Lactated Ringer's (Lactated Ringers Solution) 1,000 mls @ 125 mls/hr IV ASDIR [facility] Last Admin: 12/13/16 13:41 Dose: Not Given Linezolid (Zyvox (Restricted To Id) -) 600 mg PO BID [facility] Stop: 12/18/16 10:01 Lisinopril (Prinivil) 10 mg PO DAILY [facility] Last Admin: 12/14/16 10:35 Dose: Not Given Metoprolol Succinate (Toprol Xl -) 50 mg PO DAILY [facility] Last Admin: 12/14/16 10:33 Dose: Not Given Tamsulosin HCl (Flomax -) 0.4 mg PO DAILY@0830 [facility] Last Admin: 12/14/16 08:18 Dose: 0.4 mg - Objective Vital Signs: Vital Signs Temperature 98.4 F 12/14/16 10:00 Pulse Rate 69 12/14/16 10:00 Respiratory Rate 20 12/14/16 10:00 Blood Pressure 118/50 12/14/16 10:00 O2 Sat by Pulse Oximetry (%) 96 12/14/16 09:00 Labs: CBC, BMP 12/13/16 06:10 12/13/16 06:10 INR, PTT INR 1.68 (0.82-1.09) H D 12/06/16 15:00 Problem List - Problems (1) Abdominal hematoma Code(s): S36.92XA - CONTUSION OF UNSPECIFIED INTRA-ABDOMINAL ORGAN, INIT ENCNTR
--- NOTE | 2016-12-14 11:10 | PN ---
Progress Note, Physician - Current Medication List Current Medications: Active Medications Apixaban (Eliquis -) 5 mg PO BID [facility] Last Admin: 12/14/16 10:33 Dose: 5 mg Fentanyl (Sublimaze Injection -) 50 mcg IVPUSH [id number] PRN PRN Reason: PAIN Stop: 12/15/16 12:22 Finasteride (Proscar -) 5 mg PO DAILY [facility] Last Admin: 12/14/16 10:32 Dose: 5 mg Furosemide (Lasix -) 20 mg PO DAILY [facility] Last Admin: 12/14/16 10:35 Dose: Not Given Lactated Ringer's (Lactated Ringers Solution) 1,000 mls @ 125 mls/hr IV ASDIR [facility] Last Admin: 12/13/16 13:41 Dose: Not Given Linezolid (Zyvox (Restricted To Id) -) 600 mg PO BID [facility] Stop: 12/18/16 10:01 Lisinopril (Prinivil) 10 mg PO DAILY [facility] Last Admin: 12/14/16 10:35 Dose: Not Given Metoprolol Succinate (Toprol Xl -) 50 mg PO DAILY [facility] Last Admin: 12/14/16 10:33 Dose: Not Given Tamsulosin HCl (Flomax -) 0.4 mg PO DAILY@0830 [facility] Last Admin: 12/14/16 08:18 Dose: 0.4 mg - Objective Vital Signs: Vital Signs Temperature 98.4 F 12/14/16 10:00 Pulse Rate 69 12/14/16 10:00 Respiratory Rate 20 12/14/16 10:00 Blood Pressure 118/50 12/14/16 10:00 O2 Sat by Pulse Oximetry (%) 96 12/14/16 09:00 Labs: CBC, BMP 12/13/16 06:10 12/13/16 06:10 INR, PTT INR 1.68 (0.82-1.09) H D 12/06/16 15:00 Problem List - Problems (1) Abdominal hematoma Code(s): S36.92XA - CONTUSION OF UNSPECIFIED INTRA-ABDOMINAL ORGAN, INIT ENCNTR Assessment/Plan pt good to go home w vns vasc f/u in am f/u w [id number] sunday po zyvox po bid if not covered bactrim ds bid x 57 days called in to [facility] lisinopril 10 mg [facility] in to [facility] already d/c pt home today
[2016-12-14 13:47] VITALS: PULSE 73; TEMP 97.8
--- NOTE | 2016-12-14 16:01 | PATH ---
Surgical Pathology Report Patient Name: HARI MISHRA [facility]. Rec. #: [id number] /Age/Gender: 1925 (Age: 89) / M Account: [id number] Location: [address] [place] [address]/[facility] [place] Taken: 12/12/2016 Received: 12/13/2016 Reported: 12/14/2016 Physicians: Jaime Breaux M.D. 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 Electronically Signed Eduin Singh M.D. Gross Description Received in formalin, labeled "debrided tissue left groin" is a 3.5 x 2 x 0.6 cm portion of dumont-sahu and dumont-yellow and partially necrotic fibrofatty tissue. Television Repairman sections are submitted in one cassette. AF/12/13/2016 final/12/13/2016
== END 2016-12-14 13:58 | disposition home health service (06) | DRG 603 ==
LOC: JER 13:12 → JERBED 18:02 → J4W 20:42 → J6S 12-11 17:30
PROVIDERS: ADMIT Family Medicine Geriatric Medicine; ATTEND Family Medicine
PROC: 0H99XZX Drainage of Perineum Skin, External Approach, Diagnostic (ICD-10-PCS; principal; 2016-12-12 11:30)
DX: L02.214 Cutaneous abscess of groin (principal); N40.0 Benign prostatic hyperplasia without lower urinary tract symptoms; I48.2 Chronic atrial fibrillation; J44.9 Chronic obstructive pulmonary disease, unspecified; I10 Essential (primary) hypertension; A49.02 Methicillin resistant Staphylococcus aureus infection, unspecified site; S30.1XXA Contusion of abdominal wall, initial encounter; X58.XXXA Exposure to other specified factors, initial encounter; Y93.89 Activity, other specified; Y92.89 Other specified places as the place of occurrence of the external cause; Z86.718 Personal history of other venous thrombosis and embolism
CPT/HCPCS: 36415; 72193-TC; 76856-TC; 80048; 80053; 81003; 81015; 85025; 85610; 85651; 86140; 86850; 86900; 86901; 87040; 87070; 87075; 87186; 87205; 88304-TC; 93005; 93010; 97116-GP; 97162-GP; 99282-25; G0480